=== PATIENT | male | born 1940 | race Caucasian/White ===

== ENCOUNTER 2020-04-30 19:18 | Observation (INO) | payer MEDICAID, MEDICARE ==
[2020-04-30] MEDS ORDERED: fentaNYL 100 MCG/2 ML SDV IVPUSH ONE (20:10)
[2020-04-30] MEDS ORDERED: Prochlorperazine 10 MG/2 ML SDV IVPUSH ONE (20:10)
--- NOTE | 2020-04-30 20:12 | EDM.PDOC ---
ED HPI GENERAL MEDICAL PROBLEM - General Chief Complaint: General Stated Complaint: VOMITTING Time Seen by Provider: 04/30/20 20:04 Source of Information: Reports: Patient, RN Notes Reviewed History Limitations: Reports: No Limitations - History of Present Illness INITIAL COMMENTS - FREE TEXT/NARRATIVE: 79-year-old gentleman presents emergency department today via EMS services, he is a resident of a half-way [facility] over the last couple days he has had increasing abdominal pain today significant nausea and vomiting pain is predominantly epigastric in region. No fevers no shortness of breath no chest pain no history of abdominal surgeries - Related Data Allergies Allergy/AdvReac Type Severity Reaction Status Date / Time No Known Allergies Allergy Verified 04/30/20 19:20 Home Meds: Home Meds DULoxetine HCl [Duloxetine HCl] 20 mg PO DAILY 04/30/20 [History] Fluticasone Propionate [Flonase] 2 spray NS DAILY 04/30/20 [History] Loratadine 10 mg PO BEDTIME 04/30/20 [History] OLANZapine [Olanzapine] 2.5 mg PO BEDTIME 04/30/20 [History] [place]-3 Fatty Acids/Fish Oil [Fish Oil 1,000 mg Capsule] 1 cap PO DAILY 04/30/20 [History] Simvastatin [Zocor] 20 mg PO DAILY 04/30/20 [History] Tamsulosin HCl [Flomax] 1 cap PO BEDTIME 04/30/20 [History] Tiotropium [place] [Spiriva Respimat] 2 puff IH DAILY 04/30/20 [History] levETIRAcetam [Keppra] 250 mg PO BID 04/30/20 [History] lisinopriL [Lisinopril] 10 mg PO DAILY 04/30/20 [History] Past Medical History Cardiovascular History: Reports: Hypertension, Other (See Below) Other Cardiovascular History: heart disease Gastrointestinal History: Reports: GERD Psychiatric History: Reports: Dementia Endocrine/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, Type II - Infectious Disease History Infectious Disease History: Reports: Chicken Pox, Measles, Mumps Social & Family History - Tobacco Use Tobacco Use Status *Q: Never Tobacco User - Caffeine Use Caffeine Use: Reports: Coffee - Recreational Drug Use Recreational Drug Use: No ED ROS GENERAL - Review of Systems Review Of Systems: See Below Constitutional: Denies: Fever, Chills HEENT: Reports: No Symptoms Respiratory: Reports: No Symptoms Cardiovascular: Reports: No Symptoms GI/Abdominal: Reports: Abdominal Pain, Nausea, Vomiting : Reports: No Symptoms Musculoskeletal: Reports: No Symptoms ED EXAM, GENERAL - Physical Exam Exam: See Below Exam Limited By: No Limitations General Appearance: Alert, WD/WN, No Apparent Distress Respiratory/Chest: No Respiratory Distress, Lungs Clear, Normal Breath Sounds, No Accessory Muscle Use, Chest Non-Tender Cardiovascular: Regular Rate, Rhythm, No Murmur GI/Abdominal: Normal Bowel Sounds, Soft, Distended, Tender (Epigastric region) Course - Vital Signs Last Recorded V/S: Last Vital Signs Temp 96.5 F L 04/30/20 19:20 Pulse 125 H 04/30/20 22:01 Resp 16 04/30/20 21:12 BP 176/80 H 04/30/20 22:01 Pulse Ox 93 L 04/30/20 21:12 - Orders/Labs/Meds Orders: Active Orders 24 hr Category Date Time Status Peripheral IV Care [RC] . DIRECTED Care 04/30/20 22:17 Active UA W/MICROSCOPIC [URIN] Urgent Lab 04/30/20 20:08 Ordered Lactated Ringers [Ringers, Lactated] 1,000 ml Med 04/30/20 20:15 Active IV ASDIRECTED Sodium Chloride 0.9% [Saline Flush] Med 04/30/20 22:17 Active 10 ml FLUSH ASDIRECTED PRN Peripheral IV Insertion Pediatric [OM.PC] Routine Oth 04/30/20 22:17 Ordered Medication Orders Lactated Ringer's (Ringers, Lactated) 1,000 mls @ 999 mls/hr IV ASDIRECTED GABY Last Admin: 04/30/20 20:21 Dose: 500 mls/hr Documented by: ANNETTE Sodium Chloride (Saline Flush) 10 ml FLUSH ASDIRECTED PRN PRN Reason: Keep Vein Open Last Admin: 04/30/20 22:30 Dose: 10 ml Documented by: ANNETTE Labs: Laboratory Tests 04/30/20 04/30/20 04/30/20 Range/Units 21:11 21:11 21:11 WBC 14.1 H (4.5-11.0) K/uL RBC 4.80 (4.30-5.90) M/uL Hgb 14.8 (12.0-15.0) g/dL Hct 44.0 (40.0-54.0) % MCV 92 (80-98) fL MCH 31 (27-31) pg MCHC 34 (32-36) % Plt Count 315 (150-400) K/uL Neut % (Auto) 88 H (36-66) % Lymph % (Auto) 8 L (24-44) % [place] % (Auto) 3 (2-6) % Eos % (Auto) 0 L (2-4) % Baso % (Auto) 0 (0-1) % Sodium 141 (140-148) mmol/L Potassium 4.3 (3.6-5.2) mmol/L Chloride 104 (100-108) mmol/L Carbon Dioxide 25 (21-32) mmol/L Anion Gap 12.0 (5.0-14.0) mmol/L BUN 29 H (7-18) mg/dL Creatinine 1.7 H (0.8-1.3) mg/dL Est Cr Clr Drug Dosing TNP Estimated GFR (MDRD) 39 L (>60) Glucose 180 H (74-106) mg/dL Lactic Acid 1.9 (0.4-2.0) mmol/L Calcium 9.1 (8.5-10.1) mg/dL Total Bilirubin 0.5 (0.2-1.0) mg/dL AST 11 L (15-37) U/L ALT 18 (12-78) U/L Alkaline Phosphatase 98 (46-116) U/L Troponin I < 0.017 (0.000-0.056) ng/mL Total Protein 7.7 (6.4-8.2) g/dL Albumin 3.9 (3.4-5.0) g/dL Globulin 3.8 H (2.3-3.5) g/dL Albumin/Globulin Ratio 1.0 L (1.2-2.2) Lipase 59 L (73-393) U/L Gastric Occult Blood (NEGATIVE) 04/30/20 Range/Units 22:04 WBC (4.5-11.0) K/uL RBC (4.30-5.90) M/uL Hgb (12.0-15.0) g/dL Hct (40.0-54.0) % MCV (80-98) fL MCH (27-31) pg MCHC (32-36) % Plt Count (150-400) K/uL Neut % (Auto) (36-66) % Lymph % (Auto) (24-44) % [place] % (Auto) (2-6) % Eos % (Auto) (2-4) % Baso % (Auto) (0-1) % Sodium (140-148) mmol/L Potassium (3.6-5.2) mmol/L Chloride (100-108) mmol/L Carbon Dioxide (21-32) mmol/L Anion Gap (5.0-14.0) mmol/L BUN (7-18) mg/dL Creatinine (0.8-1.3) mg/dL Est Cr Clr Drug Dosing Estimated GFR (MDRD) (>60) Glucose (74-106) mg/dL Lactic Acid (0.4-2.0) mmol/L Calcium (8.5-10.1) mg/dL Total Bilirubin (0.2-1.0) mg/dL AST (15-37) U/L ALT (12-78) U/L Alkaline Phosphatase (46-116) U/L Troponin I (0.000-0.056) ng/mL Total Protein (6.4-8.2) g/dL Albumin (3.4-5.0) g/dL Globulin (2.3-3.5) g/dL Albumin/Globulin Ratio (1.2-2.2) Lipase (73-393) U/L Gastric Occult Blood Positive H (NEGATIVE) Meds: Medications Generic Name Dose Route Start Last Admin Trade Name Freq PRN Reason Stop Dose Admin Lactated Ringer's 1,000 mls @ 999 mls/hr 04/30/20 20:15 04/30/20 20:21 Ringers, Lactated IV 500 mls/hr ASDIRECTED GABY Administration Sodium Chloride 10 ml 04/30/20 22:17 04/30/20 22:30 Saline Flush FLUSH 10 ml ASDIRECTED PRN Administration Keep Vein Open Discontinued Medications Generic Name Dose Route Start Last Admin Trade Name Freq PRN Reason Stop Dose Admin Fentanyl 50 mcg 04/30/20 20:10 04/30/20 20:22 Sublimaze IVPUSH 04/30/20 20:11 50 mcg ONETIME ONE Administration Lorazepam 1 mg 10/30/20 21:52 04/30/20 22:06 Ativan IVPUSH 04/30/20 21:53 1 mg ONETIME ONE Administration Octreotide Acetate 50 mcg 04/30/20 22:18 04/30/20 22:29 Sandostatin IVPUSH 04/30/20 22:19 50 mcg ONETIME ONE Administration Pantoprazole Sodium 40 mg 04/30/20 22:17 04/30/20 22:29 Protonix Iv IVPUSH 04/30/20 22:18 40 mg ONETIME ONE Administration Prochlorperazine Edisylate 5 mg 04/30/20 20:10 04/30/20 20:22 Compazine IVPUSH 04/30/20 20:11 5 mg ONETIME ONE Administration Departure - Departure Time of Disposition: 23:15 Disposition: Admitted As Inpatient 68 Condition: Fair Clinical Impression: Gastroenteritis - Discharge Information Referrals: PCP,None [Primary Care Provider] - Forms: ED Department Discharge Sepsis Event Note (ED) - Evaluation Sepsis Screening Result: No Definite Risk - Focused Exam Vital Signs: Vital Signs Temp Pulse Resp BP Pulse Ox 04/30/20 22:01 125 H 176/80 H 04/30/20 21:12 120 H 16 172/85 H 93 L 04/30/20 19:20 96.5 F L 108 H 18 186/96 H 95 - My Orders Last 24 Hours: My Active Orders 04/30/20 20:08 UA W/MICROSCOPIC [URIN] Urgent 04/30/20 20:15 Lactated Ringers [Ringers, Lactated] 1,000 ml IV ASDIRECTED 04/30/20 22:17 Peripheral IV Care [RC] . DIRECTED Sodium Chloride 0.9% [Saline Flush] 10 ml FLUSH ASDIRECTED PRN Peripheral IV Insertion Pediatric [OM.PC] Routine - Assessment/Plan Last 24 Hours: My Active Orders 04/30/20 20:08 UA W/MICROSCOPIC [URIN] Urgent 04/30/20 20:15 Lactated Ringers [Ringers, Lactated] 1,000 ml IV ASDIRECTED 04/30/20 22:17 Peripheral IV Care [RC] . DIRECTED Sodium Chloride 0.9% [Saline Flush] 10 ml FLUSH ASDIRECTED PRN Peripheral IV Insertion Pediatric [OM.PC] Routine Plan: Assessment Acuity = acute Site and laterality = gastroenteritis Etiology = probably viral Manifestations = nausea vomiting Location of injury = Home Lab values = WBC elevated 14.1 consistent leukocytosis creatinine elevated 1.7 consistent with chronic renal failure stage G3 B lactic acid normal 1.8 troponin is negative positive occult blood in the gastric secretions Covid test per report from [facility] is negative Plan Call discussed case hospitalist on-call at [phone] he currently agreed to come and evaluate patient emergency department for admission This note was dictated using [employer] voice recognition software please call with any questions on syntax or grammar.
[2020-04-30] MEDS ORDERED: Lactated Ringers 1,000 ML IV SCH (20:15)
[2020-04-30] MEDS ORDERED: LORazepam 2 MG/ML SDV IVPUSH ONE (21:52)
[2020-04-30] MEDS ORDERED: Pantoprazole 40 MG Vial IVPUSH ONE (22:17)
[2020-04-30] MEDS ORDERED: Sodium Chloride 0.9% 10 ML Syringe FLUSH PRN (22:17)
[2020-04-30] MEDS ORDERED: Octreotide 100 MCG/ML SDV IVPUSH ONE (22:18)
--- NOTE | 2020-04-30 22:40 | CRLCT ---
INDICATION: epigastric pain and distention CT ABDOMEN AND PELVIS WITHOUT CONTRAST TECHNIQUE: Multidetector CT imaging was performed through the abdomen and pelvis without intravenous contrast administration. Coronal and sagittal reconstructions were generated. COMPARISON: None. FINDINGS: Lower chest: Mild basilar lung atelectasis, greatest on the right. Liver: Within normal limits. Gallbladder and bile ducts: No gallbladder wall thickening or calcified gallstones. No biliary dilation identified. Pancreas: Unremarkable. Spleen: Normal. Adrenals: No nodules or masses. Kidneys, ureters, and urinary bladder: Bilateral renal cortical hypodensities likely representing cysts. Tiny nonobstructing stone in the lower pole of the left kidney. No ureteral stones or hydronephrosis. No bladder mass or definite wall thickening. Gastrointestinal tract: Small to moderate sized hiatal hernia. Nonspecific mild prominence of gas within the stomach and in portions of the small bowel and colon, without caliber transition, possibly due to gastroenteritis. No bowel wall thickening identified. Appendix is not seen. Multiple sigmoid colon diverticula are present, without evidence of diverticulitis. Vascular structures: Mild to moderate aortoiliac atherosclerotic calcifications. Peritoneum: No free air, abscess, or significant free fluid. Lymph nodes: No pathologically enlarged nodes identified. Reproductive organs: Mild prostatomegaly. Bones: Spinal degenerative changes. IMPRESSION: 1. Nonspecific mild prominence of gas within the stomach and bowel, possibly reflecting gastroenteritis. 2. Nonacute additional findings as detailed above. LILLIAM MIRAMONTES MD [employer] Dictated by Gregor Miramontes MD @ 04/30/2020 10:37:51 PM Dictated by: Gregor Miramontes MD @ 04/30/2020 22:38:04 (Electronically Signed)
[2020-04-30] MEDS ORDERED: Ondansetron 4 MG/2 ML SDV IV PRN (23:28)
--- NOTE | 2020-04-30 23:50 | EDM.PDOC ---
ED HPI GENERAL MEDICAL PROBLEM - General Chief Complaint: General Stated Complaint: VOMITTING Time Seen by Provider: 04/30/20 20:04 Source of Information: Reports: Patient, RN Notes Reviewed History Limitations: Reports: No Limitations - History of Present Illness INITIAL COMMENTS - FREE TEXT/NARRATIVE: This patient who has a history of Diabetes mellitus, coronary artery disease and dementia presented to the emergency department and was evaluated by Dr Officer with the below history. He has a history of an appendectomy when he was younger otherwise no other abdominal surgery or history of cancer. He notes nausea and vomiting as well as abdominal pain and back discomfort. He is a vague historian given his history of dementia. He is not had any diarrhea and his last bowel movement was yesterday. He reports passing gas today. Patient does not have a fever. 79-year-old gentleman presents emergency department today via EMS services, he is a resident of a senior living [facility] over the last couple days he has had increasing abdominal pain today significant nausea and vomiting pain is predominantly epigastric in region. No fevers no shortness of breath no chest pain no history of abdominal surgeries. His work-up included a CT scan of the abdomen pelvis without contrast. There was no evidence of bowel obstruction. He had a few nonobstructing stones in the left kidney but there was no signs of hydronephrosis or hydroureter. He has a small to moderate size hiatal hernia. He has sigmoid colon diverticula gnosis without evidence of diverticulitis the impression was nonspecific mild prominence of gas within the stomach and bowel reflecting gastroenteritis. Patient had an elevated white blood count. His creatinine was 1.7. BUN was slightly elevated at 29 but his electrolytes were normal. He had normal troponin. He had a Covid test done earlier today and the results are pending. He has had an ECG that is pending. The patient is being admitted for gastroenteritis. He was given IV fluids while in the ED as well as pain medication and an antiemetic. - Related Data Allergies Allergy/AdvReac Type Severity Reaction Status Date / Time No Known Allergies Allergy Verified 04/30/20 19:20 Home Meds: Home Meds DULoxetine HCl [Duloxetine HCl] 20 mg PO DAILY 04/30/20 [History] Fluticasone Propionate [Flonase] 2 spray NS DAILY 04/30/20 [History] Loratadine 10 mg PO BEDTIME 04/30/20 [History] OLANZapine [Olanzapine] 2.5 mg PO BEDTIME 04/30/20 [History] [place]-3 Fatty Acids/Fish Oil [Fish Oil 1,000 mg Capsule] 1 cap PO DAILY 04/30/20 [History] Simvastatin [Zocor] 20 mg PO DAILY 04/30/20 [History] Tamsulosin HCl [Flomax] 1 cap PO BEDTIME 04/30/20 [History] Tiotropium [place] [Spiriva Respimat] 2 puff IH DAILY 04/30/20 [History] levETIRAcetam [Keppra] 250 mg PO BID 04/30/20 [History] lisinopriL [Lisinopril] 10 mg PO DAILY 04/30/20 [History] Past Medical History Cardiovascular History: Reports: Hypertension, Other (See Below) Other Cardiovascular History: heart disease Gastrointestinal History: Reports: GERD Psychiatric History: Reports: Dementia Endocrine/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, Type II - Infectious Disease History Infectious Disease History: Reports: Chicken Pox, Measles, Mumps Social & Family History - Tobacco Use Tobacco Use Status *Q: Never Tobacco User - Caffeine Use Caffeine Use: Reports: Coffee - Recreational Drug Use Recreational Drug Use: No ED ROS GENERAL - Review of Systems Review Of Systems: Unable To Obtain Reason Not Obtained: Dementia ED EXAM, GENERAL - Physical Exam Exam: See Below Free Text/Narrative:: 79-year-old gentleman presents emergency department today via EMS services, he is a resident of a senior living [facility] over the last couple days he has had increasing abdominal pain today significant nausea and vomiting pain is predominantly epigastric in region. No fevers no shortness of breath no chest pain no history of abdominal surgeries Exam Limited By: No Limitations General Appearance: Alert, WD/WN, No Apparent Distress, Mild Distress Ears: Normal External Exam, Normal Canal, Normal TMs Nose: Normal Inspection Throat/Mouth: Normal Inspection, Other (Mucous membranes are moist.) Head: Atraumatic Neck: Normal Inspection Respiratory/Chest: No Respiratory Distress, Lungs Clear, Normal Breath Sounds, No Accessory Muscle Use, Chest Non-Tender Cardiovascular: No Murmur, Tachycardia GI/Abdominal: Soft, Distended, Tender (Epigastric region), Other (His abdomen is generally distended. Bowel sounds are absent in all quadrants.). No: Normal Bowel Sounds Extremities: Normal Inspection Neurological: Slow to Respond, Memory Loss Recent Events Course - Vital Signs Text/Narrative:: This patient has gastroenteritis. His abdomen is distended he is tachycardic. He appears to have a small bowel obstruction however his CT scan did not show any evidence of obstruction. He has significant amount of gas in his abdomen. His vomiting is well controlled with Zofran. Was given fluids in the ED. He is being admitted for fluids as well as antiemetics. Hopefully he will be much better in the morning and can be discharged tomorrow. Is being admitted for observation. His CODE STATUS is DNR/DNI. Dr. Lane and was consulted by . Officer at admission. Patient received a dose of octreotide in the ED because there was possibility of GI bleed. CBC is normal. Other than tachycardia he is hemodynamically stable. ECG showed a sinus tachycardia. There is no signs of ischemia. Last Recorded V/S: Last Vital Signs Temp 35.8 C L 04/30/20 19:20 Pulse 125 H 04/30/20 22:01 Resp 16 04/30/20 21:12 BP 176/80 H 04/30/20 22:01 Pulse Ox 93 L 04/30/20 21:12 - Orders/Labs/Meds Orders: Active Orders 24 hr Category Date Time Status Patient Status [ADT] Routine ADT 04/30/20 23:28 Active EKG Documentation Completion [RC] ASDIRECTED Care 04/30/20 23:33 Active Intake and Output [RC] QSHIFT Care 04/30/20 23:31 Active Oxygen Therapy [RC] PRN Care 04/30/20 23:28 Active Peripheral IV Care [RC] . DIRECTED Care 04/30/20 22:17 Active Up With Assistance [RC] ASDIRECTED Care 04/30/20 23:28 Active VTE/DVT Education [RC] Per Unit Routine Care 04/30/20 23:28 Active Vital Signs [RC] Q4H Care 04/30/20 23:28 Active Nothing per Oral Now Diet [DIET] Diet 04/30/20 Breakfast Active BASIC METABOLIC PANEL,BMP [CHEM] AM Lab 05/01/20 05:11 Ordered CBC WITH AUTO DIFF [HEME] AM Lab 05/01/20 05:11 Ordered UA W/MICROSCOPIC [URIN] Urgent Lab 04/30/20 20:08 Ordered DULoxetine [Cymbalta] Med 05/01/20 09:00 Ordered 20 mg PO DAILY Fluticasone Propionate [Flonase] Med 05/01/20 09:00 Ordered DOSE gm GERMAN DAILY Lactated Ringers [Ringers, Lactated] 1,000 ml Med 04/30/20 20:15 Active IV ASDIRECTED Loratadine [Claritin] Med 05/01/20 21:00 Ordered 10 mg PO BEDTIME OLANZapine [Olanzapine] Med 05/01/20 21:00 Ordered 2.5 mg PO BEDTIME [place]-3 Fatty Acids/Fish Oil [Fish Oil 1,000 mg Capsule Med 05/01/20 09:00 Ordered ] 1 cap PO DAILY Ondansetron [Zofran] Med 04/30/20 23:28 Active 4 mg IV Q6H PRN Simvastatin [Zocor] Med 05/01/20 09:00 Ordered 20 mg PO DAILY Sodium Chloride 0.9% [Normal Saline] 1,000 ml Med 04/30/20 23:30 Active IV ASDIRECTED Sodium Chloride 0.9% [Saline Flush] Med 04/30/20 22:17 Active 10 ml FLUSH ASDIRECTED PRN Tamsulosin [Flomax] Med 05/01/20 21:00 Ordered DOSE mg PO BEDTIME Tiotropium [place] [Spiriva Respimat] Med 05/01/20 09:00 Ordered 2 puff IH DAILY levETIRAcetam [Keppra] Med 05/01/20 09:00 Ordered 250 mg PO BID lisinopriL [Prinivil] Med 05/01/20 09:00 Ordered 10 mg PO DAILY Peripheral IV Insertion Pediatric [OM.PC] Routine Oth 04/30/20 22:17 Ordered Resuscitation Status Routine Resus Stat 04/30/20 23:28 Ordered EKG 12 Lead [EK] Stat Ther 04/30/20 23:28 Ordered Medication Orders Duloxetine HCl (Cymbalta) 20 mg PO DAILY GABY Fluticasone Propionate (Flonase) gm GERMAN DAILY GABY Lactated Ringer's (Ringers, Lactated) 1,000 mls @ 999 mls/hr IV ASDIRECTED GABY Last Admin: 04/30/20 20:21 Dose: 500 mls/hr Documented by: ANNETTE Sodium Chloride (Normal Saline) 1,000 mls @ 125 mls/hr IV ASDIRECTED GABY Levetiracetam (Keppra) 250 mg PO BID GABY Lisinopril (Prinivil) 10 mg PO DAILY GABY Loratadine (Claritin) 10 mg PO BEDTIME GABY Non-Formulary Medication (Olanzapine [Olanzapine]) 2.5 mg PO BEDTIME GABY Non-Formulary Medication ([place]-3 Fatty Acids/Fish Oil [Fish Oil 1,000 Mg Capsule]) 1 cap PO DAILY GABY Non-Formulary Medication (Tiotropium [place] [Spiriva Respimat]) 2 puff IH DAILY GABY Ondansetron HCl (Zofran) 4 mg IV Q6H PRN PRN Reason: Nausea/Vomiting Simvastatin (Zocor) 20 mg PO DAILY GABY Sodium Chloride (Saline Flush) 10 ml FLUSH ASDIRECTED PRN PRN Reason: Keep Vein Open Last Admin: 04/30/20 22:30 Dose: 10 ml Documented by: ANNETTE Tamsulosin HCl (Flomax) mg PO BEDTIME GABY Labs: Laboratory Tests 04/30/20 04/30/20 04/30/20 Range/Units 21:11 21:11 21:11 WBC 14.1 H (4.5-11.0) K/uL RBC 4.80 (4.30-5.90) M/uL Hgb 14.8 (12.0-15.0) g/dL Hct 44.0 (40.0-54.0) % MCV 92 (80-98) fL MCH 31 (27-31) pg MCHC 34 (32-36) % Plt Count 315 (150-400) K/uL Neut % (Auto) 88 H (36-66) % Lymph % (Auto) 8 L (24-44) % [place] % (Auto) 3 (2-6) % Eos % (Auto) 0 L (2-4) % Baso % (Auto) 0 (0-1) % Sodium 141 (140-148) mmol/L Potassium 4.3 (3.6-5.2) mmol/L Chloride 104 (100-108) mmol/L Carbon Dioxide 25 (21-32) mmol/L Anion Gap 12.0 (5.0-14.0) mmol/L BUN 29 H (7-18) mg/dL Creatinine 1.7 H (0.8-1.3) mg/dL Est Cr Clr Drug Dosing TNP Estimated GFR (MDRD) 39 L (>60) Glucose 180 H (74-106) mg/dL Lactic Acid 1.9 (0.4-2.0) mmol/L Calcium 9.1 (8.5-10.1) mg/dL Total Bilirubin 0.5 (0.2-1.0) mg/dL AST 11 L (15-37) U/L ALT 18 (12-78) U/L Alkaline Phosphatase 98 (46-116) U/L Troponin I < 0.017 (0.000-0.056) ng/mL Total Protein 7.7 (6.4-8.2) g/dL Albumin 3.9 (3.4-5.0) g/dL Globulin 3.8 H (2.3-3.5) g/dL Albumin/Globulin Ratio 1.0 L (1.2-2.2) Lipase 59 L (73-393) U/L Gastric Occult Blood (NEGATIVE) 04/30/20 Range/Units 22:04 WBC (4.5-11.0) K/uL RBC (4.30-5.90) M/uL Hgb (12.0-15.0) g/dL Hct (40.0-54.0) % MCV (80-98) fL MCH (27-31) pg MCHC (32-36) % Plt Count (150-400) K/uL Neut % (Auto) (36-66) % Lymph % (Auto) (24-44) % [place] % (Auto) (2-6) % Eos % (Auto) (2-4) % Baso % (Auto) (0-1) % Sodium (140-148) mmol/L Potassium (3.6-5.2) mmol/L Chloride (100-108) mmol/L Carbon Dioxide (21-32) mmol/L Anion Gap (5.0-14.0) mmol/L BUN (7-18) mg/dL Creatinine (0.8-1.3) mg/dL Est Cr Clr Drug Dosing Estimated GFR (MDRD) (>60) Glucose (74-106) mg/dL Lactic Acid (0.4-2.0) mmol/L Calcium (8.5-10.1) mg/dL Total Bilirubin (0.2-1.0) mg/dL AST (15-37) U/L ALT (12-78) U/L Alkaline Phosphatase (46-116) U/L Troponin I (0.000-0.056) ng/mL Total Protein (6.4-8.2) g/dL Albumin (3.4-5.0) g/dL Globulin (2.3-3.5) g/dL Albumin/Globulin Ratio (1.2-2.2) Lipase (73-393) U/L Gastric Occult Blood Positive H (NEGATIVE) Meds: Medications Generic Name Dose Route Start Last Admin Trade Name Freq PRN Reason Stop Dose Admin Duloxetine HCl 20 mg 05/01/20 09:00 Cymbalta PO DAILY GABY Fluticasone Propionate gm 05/01/20 09:00 Flonase GERMAN DAILY GABY Lactated Ringer's 1,000 mls @ 999 mls/hr 04/30/20 20:15 04/30/20 20:21 Ringers, Lactated IV 500 mls/hr ASDIRECTED GABY Administration Sodium Chloride 1,000 mls @ 125 mls/hr 04/30/20 23:30 Normal Saline IV ASDIRECTED GABY Levetiracetam 250 mg 05/01/20 09:00 Keppra PO BID GABY Lisinopril 10 mg 05/01/20 09:00 Prinivil PO DAILY GABY Loratadine 10 mg 05/01/20 21:00 Claritin PO BEDTIME GABY Non-Formulary Medication 2.5 mg 05/01/20 21:00 Olanzapine [Olanzapine] PO BEDTIME GABY Non-Formulary Medication 1 cap 05/01/20 09:00 [place]-3 Fatty Acids/Fish Oil [Fish Oil 1,000 Mg Capsule] PO DAILY GABY Non-Formulary Medication 2 puff 05/01/20 09:00 Tiotropium [place] [Spiriva Respimat] IH DAILY GABY Ondansetron HCl 4 mg 04/30/20 23:28 Zofran IV Q6H PRN Nausea/Vomiting Simvastatin 20 mg 05/01/20 09:00 Zocor PO DAILY GABY Sodium Chloride 10 ml 04/30/20 22:17 04/30/20 22:30 Saline Flush FLUSH 10 ml ASDIRECTED PRN Administration Keep Vein Open Tamsulosin HCl mg 05/01/20 21:00 Flomax PO BEDTIME GABY Discontinued Medications Generic Name Dose Route Start Last Admin Trade Name Freq PRN Reason Stop Dose Admin Fentanyl 50 mcg 04/30/20 20:10 04/30/20 20:22 Sublimaze IVPUSH 04/30/20 20:11 50 mcg ONETIME ONE Administration Lorazepam 1 mg 04/30/20 21:52 04/30/20 22:06 Ativan IVPUSH 04/30/20 21:53 1 mg ONETIME ONE Administration Octreotide Acetate 50 mcg 04/30/20 22:18 04/30/20 22:29 Sandostatin IVPUSH 04/30/20 22:19 50 mcg ONETIME ONE Administration Pantoprazole Sodium 40 mg 04/30/20 22:17 04/30/20 22:29 Protonix Iv IVPUSH 04/30/20 22:18 40 mg ONETIME ONE Administration Prochlorperazine Edisylate 5 mg 04/30/20 20:10 04/30/20 20:22 Compazine IVPUSH 04/30/20 20:11 5 mg ONETIME ONE Administration Departure - Departure Time of Disposition: 23:55 Disposition: Refer to Observation Condition: Fair Clinical Impression: Gastroenteritis - Discharge Information Referrals: PCP,None [Primary Care Provider] - Forms: ED Department Discharge Sepsis Event Note (ED) - Evaluation Sepsis Screening Result: No Definite Risk - Focused Exam Vital Signs: Vital Signs Temp Pulse Resp BP Pulse Ox 04/30/20 22:01 125 H 176/80 H 04/30/20 21:12 120 H 16 172/85 H 93 L 04/30/20 19:20 35.8 C L 108 H 18 186/96 H 95 - My Orders Last 24 Hours: My Active Orders 04/30/20 Breakfast Nothing per Oral Now Diet [DIET] 04/30/20 23:28 Patient Status [ADT] Routine Oxygen Therapy [RC] PRN Up With Assistance [RC] ASDIRECTED VTE/DVT Education [RC] Per Unit Routine Vital Signs [RC] Q4H Ondansetron [Zofran] 4 mg IV Q6H PRN Resuscitation Status Routine EKG 12 Lead [EK] Stat 04/30/20 23:30 Sodium Chloride 0.9% [Normal Saline] 1,000 ml IV ASDIRECTED 10/30/20 23:31 Intake and Output [RC] QSHIFT 04/30/20 23:33 EKG Documentation Completion [RC] ASDIRECTED 05/01/20 05:11 BASIC METABOLIC PANEL,BMP [CHEM] AM CBC WITH AUTO DIFF [HEME] AM 05/01/20 09:00 DULoxetine [Cymbalta] 20 mg PO DAILY Fluticasone Propionate [Flonase] DOSE gm GERMAN DAILY [place]-3 Fatty Acids/Fish Oil [Fish Oil 1,000 mg Capsule] 1 cap PO DAILY Simvastatin [Zocor] 20 mg PO DAILY Tiotropium [place] [Spiriva Respimat] 2 puff IH DAILY levETIRAcetam [Keppra] 250 mg PO BID lisinopriL [Prinivil] 10 mg PO DAILY 05/01/20 21:00 Loratadine [Claritin] 10 mg PO BEDTIME OLANZapine [Olanzapine] 2.5 mg PO BEDTIME Tamsulosin [Flomax] DOSE mg PO BEDTIME - Assessment/Plan Last 24 Hours: My Active Orders 04/30/20 Breakfast Nothing per Oral Now Diet [DIET] 04/30/20 23:28 Patient Status [ADT] Routine Oxygen Therapy [RC] PRN Up With Assistance [RC] ASDIRECTED VTE/DVT Education [RC] Per Unit Routine Vital Signs [RC] Q4H Ondansetron [Zofran] 4 mg IV Q6H PRN Resuscitation Status Routine EKG 12 Lead [EK] Stat 04/30/20 23:30 Sodium Chloride 0.9% [Normal Saline] 1,000 ml IV ASDIRECTED 04/30/20 23:31 Intake and Output [RC] QSHIFT 04/30/20 23:33 EKG Documentation Completion [RC] ASDIRECTED 05/01/20 05:11 BASIC METABOLIC PANEL,BMP [CHEM] AM CBC WITH AUTO DIFF [HEME] AM 05/01/20 09:00 DULoxetine [Cymbalta] 20 mg PO DAILY Fluticasone Propionate [Flonase] DOSE gm GERMAN DAILY [place]-3 Fatty Acids/Fish Oil [Fish Oil 1,000 mg Capsule] 1 cap PO DAILY Simvastatin [Zocor] 20 mg PO DAILY Tiotropium [place] [Spiriva Respimat] 2 puff IH DAILY levETIRAcetam [Keppra] 250 mg PO BID lisinopriL [Prinivil] 10 mg PO DAILY 05/01/20 21:00 Loratadine [Claritin] 10 mg PO BEDTIME OLANZapine [Olanzapine] 2.5 mg PO BEDTIME Tamsulosin [Flomax] DOSE mg PO BEDTIME
[2020-05-01] MEDS ORDERED: Ondansetron 4 MG/2 ML SDV IVPUSH PRN (00:10)
[2020-05-01] MEDS ORDERED: Dimethicone 20%/Zinc Oxide 25% 56 GM Spray Bottle TOP PRN (00:11)
[2020-05-01] MEDS ORDERED: fentaNYL 100 MCG/2 ML SDV IVPUSH PRN (00:11)
[2020-05-01] MEDS: Sodium Chloride 0.9% 1,000 ML IV SCH ×2 (00:40→08:35)
[2020-05-01] MEDS: DULoxetine 20 MG Cap PO SCH (08:59)
[2020-05-01] MEDS: Lisinopril 10 MG Tab PO SCH (08:59)
[2020-05-01] MEDS: Fish Oil/Omega-3 Fatty Acids 1 Gm Cap PO SCH (08:59)
[2020-05-01] MEDS: Fluticasone Propionate Nasal Spray 16 GM Bottle NAS SCH (09:00)
[2020-05-01] MEDS ORDERED: Simvastatin 20 MG Tab PO SCH ×2 (09:00→21:00)
[2020-05-01] MEDS: levETIRAcetam 250 MG Tab PO SCH ×2 (09:00→20:16)
[2020-05-01] MEDS ORDERED: Tiotropium Bromide 4 GM Inhalation Spray INH SCH (09:00)
[2020-05-01] MEDS: Tiotropium Bromide 4 GM Inhalation Spray INH SCH (11:28)
--- NOTE | 2020-05-01 15:01 | PCM.PN ---
- General Info Date of Service: 05/01/20 Subjective Update: Mr. Dawn is a 79-year-old gentleman who was admitted through the emergency department last night with epigastric abdominal pain, nausea and vomiting. The symptoms have been present over the past few days and he has become progressively more weak. He was given IV fluids for hydration through the night and also started on Protonix. He is feeling improved this morning with less pain and currently denies any symptoms of nausea. Emesis was found to be Hem occult positive, but not overtly bloody. Functional Status: Reports: Ambulating, Urinating - Review of Systems General: Reports: Weakness, Fatigue, Malaise. Denies: Fever, Chills Pulmonary: Reports: No Symptoms Cardiovascular: Reports: No Symptoms Gastrointestinal: Reports: Abdominal Pain, Decreased Appetite, Nausea, Vomiting. Denies: Constipation, Diarrhea, Difficulty Swallowing, Hematochezia, Melena Genitourinary: Reports: No Symptoms - Patient Data Vitals - Most Recent: Last Vital Signs Temp 97.5 F 05/01/20 14:57 Pulse 97 05/01/20 14:57 Resp 18 05/01/20 14:57 BP 156/75 H 05/01/20 14:57 Pulse Ox 95 05/01/20 14:57 Weight - Most Recent: 175 lb I&O - Last 24 Hours: Intake & Output 04/30/20 05/01/20 05/01/20 22:59 06:59 14:59 Intake Total 578 420 Output Total 300 Balance -300 578 420 Lab Results Last 24 Hours: Laboratory Results - last 24 hr 04/30/20 04/30/20 04/30/20 Range/Units 21:11 21:11 21:11 WBC 14.1 H (4.5-11.0) K/uL RBC 4.80 (4.30-5.90) M/uL Hgb 14.8 (12.0-15.0) g/dL Hct 44.0 (40.0-54.0) % MCV 92 (80-98) fL MCH 31 (27-31) pg MCHC 34 (32-36) % Plt Count 315 (150-400) K/uL Neut % (Auto) 88 H (36-66) % Lymph % (Auto) 8 L (24-44) % [place] % (Auto) 3 (2-6) % Eos % (Auto) 0 L (2-4) % Baso % (Auto) 0 (0-1) % Sodium 141 (140-148) mmol/L Potassium 4.3 (3.6-5.2) mmol/L Chloride 104 (100-108) mmol/L Carbon Dioxide 25 (21-32) mmol/L Anion Gap 12.0 (5.0-14.0) mmol/L BUN 29 H (7-18) mg/dL Creatinine 1.7 H (0.8-1.3) mg/dL Est Cr Clr Drug Dosing TNP Estimated GFR (MDRD) 39 L (>60) Glucose 180 H (74-106) mg/dL Lactic Acid 1.9 (0.4-2.0) mmol/L Calcium 9.1 (8.5-10.1) mg/dL Total Bilirubin 0.5 (0.2-1.0) mg/dL AST 11 L (15-37) U/L ALT 18 (12-78) U/L Alkaline Phosphatase 98 (46-116) U/L Troponin I < 0.017 (0.000-0.056) ng/mL Total Protein 7.7 (6.4-8.2) g/dL Albumin 3.9 (3.4-5.0) g/dL Globulin 3.8 H (2.3-3.5) g/dL Albumin/Globulin Ratio 1.0 L (1.2-2.2) Lipase 59 L (73-393) U/L Gastric Occult Blood (NEGATIVE) 04/30/20 05/01/20 05/01/20 Range/Units 22:04 04:30 04:30 WBC 11.6 H (4.5-11.0) K/uL RBC 4.28 L (4.30-5.90) M/uL Hgb 12.8 D (12.0-15.0) g/dL Hct 39.7 L (40.0-54.0) % MCV 93 (80-98) fL MCH 30 (27-31) pg MCHC 32 (32-36) % Plt Count 333 (150-400) K/uL Neut % (Auto) 76 H (36-66) % Lymph % (Auto) 13 L (24-44) % [place] % (Auto) 10 H (2-6) % Eos % (Auto) 0 L (2-4) % Baso % (Auto) 0 (0-1) % Sodium 142 (140-148) mmol/L Potassium 4.2 (3.6-5.2) mmol/L Chloride 107 (100-108) mmol/L Carbon Dioxide 23 (21-32) mmol/L Anion Gap 11.7 (5.0-14.0) mmol/L BUN 29 H (7-18) mg/dL Creatinine 1.6 H (0.8-1.3) mg/dL Est Cr Clr Drug Dosing 36.15 Estimated GFR (MDRD) 42 L (>60) Glucose 152 H (74-106) mg/dL Lactic Acid (0.4-2.0) mmol/L Calcium 8.3 L (8.5-10.1) mg/dL Total Bilirubin (0.2-1.0) mg/dL AST (15-37) U/L ALT (12-78) U/L Alkaline Phosphatase (46-116) U/L Troponin I (0.000-0.056) ng/mL Total Protein (6.4-8.2) g/dL Albumin (3.4-5.0) g/dL Globulin (2.3-3.5) g/dL Albumin/Globulin Ratio (1.2-2.2) Lipase (73-393) U/L Gastric Occult Blood Positive H (NEGATIVE) Med Orders - Current: Current Medications Dimethicone/Zinc Oxide (Rash Relief-Zinc Oxide [place]) 1 gm TOP ASDIRECTED PRN PRN Reason: Rash Last Admin: 05/01/20 04:46 Dose: 1 applic Documented by: Duloxetine HCl (Cymbalta) 20 mg PO DAILY [facility] Last Admin: 05/01/20 08:59 Dose: 20 mg Documented by: Fentanyl (Sublimaze) 50 mcg IVPUSH Q6H PRN PRN Reason: Pain (severe 7-10) Fish Oil (Fish Oil) 1 gm PO DAILY [facility] Last Admin: 05/01/20 08:59 Dose: 1 gm Documented by: Fluticasone Propionate (Flonase) 0 gm GERMAN DAILY [facility] Last Admin: 05/01/20 09:00 Dose: 2 spray Documented by: Levetiracetam (Keppra) 250 mg PO BID [facility] Last Admin: 05/01/20 09:00 Dose: 250 mg Documented by: Lisinopril (Prinivil) 10 mg PO DAILY [facility] Last Admin: 05/01/20 08:59 Dose: 10 mg Documented by: Loratadine (Claritin) 10 mg PO BEDTIME GABY Olanzapine (Zyprexa) 2.5 mg PO BEDTIME [facility] Ondansetron HCl (Zofran) 4 mg IV Q6H PRN PRN Reason: Nausea/Vomiting Pantoprazole Sodium (Protonix) 40 mg PO BIDAC GABY Simvastatin (Zocor) 20 mg PO BEDTIME [facility] Sodium Chloride (Saline Flush) 10 ml FLUSH ASDIRECTED PRN PRN Reason: Keep Vein Open Last Admin: 04/30/20 22:30 Dose: 10 ml Documented by: Tamsulosin HCl (Flomax) 0.4 mg PO BEDTIME [facility] Tiotropium [place] (Spiriva Respimat) 0 gm INH DAILY@0700 [facility] Last Admin: 05/01/20 11:28 Dose: 4 gm Documented by: Discontinued Medications Fentanyl (Sublimaze) 50 mcg IVPUSH ONETIME ONE Stop: 04/30/20 20:11 Last Admin: 04/30/20 20:22 Dose: 50 mcg Documented by: Lactated Ringer's (Ringers, Lactated) 1,000 mls @ 999 mls/hr IV ASDIRECTED [facility] Last Admin: 04/30/20 20:21 Dose: 500 mls/hr Documented by: Sodium Chloride (Normal Saline) 1,000 mls @ 125 mls/hr IV ASDIRECTED [facility] Last Admin: 05/01/20 08:35 Dose: 125 mls/hr Documented by: Lorazepam (Ativan) 1 mg IVPUSH ONETIME ONE Stop: 04/30/20 21:53 Last Admin: 04/30/20 22:06 Dose: 1 mg Documented by: Octreotide Acetate (Sandostatin) 50 mcg IVPUSH ONETIME ONE Stop: 04/30/20 22:19 Last Admin: 04/30/20 22:29 Dose: 50 mcg Documented by: Pantoprazole Sodium (Protonix Iv) 40 mg IVPUSH ONETIME ONE Stop: 04/30/20 22:18 Last Admin: 04/30/20 22:29 Dose: 40 mg Documented by: Prochlorperazine Edisylate (Compazine) 5 mg IVPUSH ONETIME ONE Stop: 04/30/20 20:11 Last Admin: 04/30/20 20:22 Dose: 5 mg Documented by: - Exam Quality Assessment: DVT Prophylaxis General: Alert, Cooperative, No Acute Distress Lungs: Clear to Auscultation, Normal Respiratory Effort Cardiovascular: Regular Rate, Regular Rhythm, No Murmurs GI/Abdominal Exam: Soft, Non-Tender, No Organomegaly, No Distention Extremities: Non-Tender, No Pedal Edema Sepsis Event Note - Evaluation Sepsis Screening Result: No Definite Risk - Focused Exam Vital Signs: Vital Signs Temp Temp Pulse Resp BP BP Pulse Ox 05/01/20 14:57 97.5 F 97 18 156/75 H 95 05/01/20 11:00 98 F 85 12 152/84 H 93 L 05/01/20 08:59 145/80 H 05/01/20 07:00 99 16 120/76 94 L - Problem List Review Problem List Initiated/Reviewed/Updated: Yes - My Orders Last 24 Hours: My Active Orders 05/01/20 Breakfast Advance Diet Instructions [DIET] 05/01/20 10:21 Convert IV to Saline Lock [OM.PC] Routine 05/01/20 16:30 Pantoprazole [ProTONIX] 40 mg PO BIDAC - Plan Plan:: ASSESSMENT AND PLAN GASTROENTERITIS-symptoms of abdominal pain with nausea and vomiting over the past few days. CT scan was felt to be consistent with gastroenteritis. Emesis was found to be positive for blood, with no tevin blood noted. Hemoglobin has dropped following hydration which would be expected. There has been no other evidence of active bleeding. Symptomatically improved today with current management. -Saline lock IV -Protonix 40 mg p.o. twice daily -Clear liquid diet; advance as tolerated -Ambulate with nursing staff CHRONIC KIDNEY DISEASE STAGE IIIb-renal function improved modestly with hydration -Closely monitor urine output and renal function MAINTENANCE ISSUES -DVT prophylaxis; Lovenox 40 mg subcu daily -GI prophylaxis; PPI as above -Freed catheter; not indicated -Nutrition; clear liquid diet, advance as tolerated -Nicotine dependence; not required CODE STATUS-DNR/DNI ADMISSION STATUS-patient will be admitted to inpatient status, expect at least a 2 night hospital stay for evaluation and management of problems as outlined above. At the time of this admission I do not reasonably expected evaluation and management of this problem will require more than a 96 hour hospital stay. DISPOSITION-anticipate discharge to home after the hospital stay. PRIMARY CARE PROVIDER-
[2020-05-01] MEDS: Pantoprazole 40 MG Tab.CR PO SCH (17:14)
[2020-05-01] MEDS: Enoxaparin 40 MG/0.4 ML Syringe SUBCUT SCH (17:18)
[2020-05-01] MEDS ORDERED: OLANZapine 5 MG Tab PO SCH (21:00)
[2020-05-01] MEDS ORDERED: Loratadine 10 MG Tab PO SCH (21:00)
[2020-05-01] MEDS ORDERED: Tamsulosin 0.4 MG Cap.ER PO SCH (21:00)
[2020-05-02] MEDS: Tiotropium Bromide 4 GM Inhalation Spray INH SCH (07:18)
[2020-05-02] MEDS: Pantoprazole 40 MG Tab.CR PO SCH ×2 (07:45→15:41)
[2020-05-02] MEDS: levETIRAcetam 250 MG Tab PO SCH (08:34)
[2020-05-02] MEDS: DULoxetine 20 MG Cap PO SCH (08:34)
[2020-05-02] MEDS: Lisinopril 10 MG Tab PO SCH (08:34)
[2020-05-02] MEDS: Fish Oil/Omega-3 Fatty Acids 1 Gm Cap PO SCH (08:34)
[2020-05-02] MEDS: Fluticasone Propionate Nasal Spray 16 GM Bottle NAS SCH (08:35)
--- NOTE | 2020-05-02 12:39 | PCM.DCSUM1 ---
Discharge Summary - Hospital Course Brief History: Mr. Dawn is a 79-year-old gentleman who was admitted through the emergency department to observation status for management of nausea, vomiting, dehydration, secondary to gastroenteritis. - Discharge Data Discharge Date: 05/02/20 Discharge Disposition: Home, Self-Care 01 Condition: Fair - Referral to Home Health Primary Care Physician: PCP None - Discharge Diagnosis/Problem(s) (1) Nausea & vomiting SNOMED Code(s): 35421717 ICD Code: R11.2 - NAUSEA WITH VOMITING, UNSPECIFIED Status: Acute Current Visit: Yes (2) Dehydration SNOMED Code(s): 45680769 ICD Code: E86.0 - DEHYDRATION Status: Acute Current Visit: Yes (3) Gastroenteritis SNOMED Code(s): 26592297 ICD Code: K52.9 - NONINFECTIVE GASTROENTERITIS AND COLITIS, UNSPECIFIED Status: Acute Current Visit: Yes - Patient Summary/Data Hospital Course: This patient who has a history of Diabetes mellitus, coronary artery disease and dementia presented to the emergency department and was evaluated by Dr Officer with the below history. He notes nausea and vomiting as well as abdominal pain and back discomfort. He is a vague historian given his history of dementia. He is not had any diarrhea and his last bowel movement was yesterday. He reports passing gas today. Patient does not have a fever. His work-up included a CT scan of the abdomen pelvis without contrast. There was no evidence of bowel obstruction. He had a few nonobstructing stones in the left kidney but there was no signs of hydronephrosis or hydroureter. He has a small to moderate size hiatal hernia. He has sigmoid colon diverticula gnosis without evidence of diverticulitis the impression was nonspecific mild prominence of gas within the stomach and bowel reflecting gastroenteritis. Patient had an elevated white blood count. His creatinine was 1.7. BUN was slightly elevated at 29 but his electrolytes were normal. He had normal troponin. He had a Covid test done ear lier today and the results are pending. The patient was being admitted for gastroenteritis. He was given IV fluids while in the ED as well as pain medication and an antiemetic. After admission IV fluids were continued for dehydration and he was started on IV Protonix. He was already feeling somewhat better by the following morning with improved energy and resolution of his abdominal pain as well as nausea and vomiting. He was placed on oral Protonix twice daily and this will be continued after discharge once daily. He was placed on a clear liquid diet and diet was advanced as tolerated by the time of discharge he was tolerating a regular diet. He was transferring and ambulating independently. Activity will be as tolerated and he will resume his usual diet follow-up appointment will be scheduled with his primary care provider within 1 week. - Patient Instructions Diet: Regular Diet as Tolerated Activity: As Tolerated Other/Special Instructions: Please schedule follow-up appointment with primary care provider within 1 week. - Discharge Plan *PRESCRIPTION DRUG MONITORING PROGRAM REVIEWED*: Not Applicable *COPY OF PRESCRIPTION DRUG MONITORING REPORT IN PATIENT NEAL: Not Applicable Prescriptions/Med Rec: Pantoprazole [ProTONIX] 40 mg PO DAILY #30 tab.cr Home Medications: Home Meds DULoxetine HCl [Duloxetine HCl] 20 mg PO DAILY 04/30/20 [History] Fluticasone Propionate [Flonase] 2 spray NS DAILY 04/30/20 [History] Loratadine 10 mg PO BEDTIME 04/30/20 [History] OLANZapine [Olanzapine] 2.5 mg PO BEDTIME 04/30/20 [History] [place]-3 Fatty Acids/Fish Oil [Fish Oil 1,000 mg Capsule] 1 cap PO DAILY 04/30/20 [History] Simvastatin [Zocor] 20 mg PO DAILY 04/30/20 [History] Tamsulosin HCl [Flomax] 1 cap PO BEDTIME 04/30/20 [History] Tiotropium [place] [Spiriva Respimat] 2 puff IH DAILY 04/30/20 [History] levETIRAcetam [Keppra] 250 mg PO BID 04/30/20 [History] lisinopriL [Lisinopril] 10 mg PO DAILY 04/30/20 [History] Pantoprazole [ProTONIX] 40 mg PO DAILY #30 tab.cr 05/02/20 [Rx] - Discharge Summary/Plan Comment DC Time >30 min.: No - Patient Data Vitals - Most Recent: Last Vital Signs Temp 98.9 F 05/02/20 11:48 Pulse 83 05/02/20 11:48 Resp 16 05/02/20 11:48 BP 132/74 05/02/20 11:48 Pulse Ox 97 05/02/20 11:48 Weight - Most Recent: 175 lb I&O - Last 24 hours: Intake & Output 05/01/20 05/02/20 05/02/20 23:59 06:59 14:59 Intake Total 240 Balance 240 Med Orders - Current: Current Medications Dimethicone/Zinc Oxide (Rash Relief-Zinc Oxide [place]) 1 gm TOP ASDIRECTED PRN PRN Reason: Rash Last Admin: 05/01/20 04:46 Dose: 1 applic Documented by: Duloxetine HCl (Cymbalta) 20 mg PO DAILY [facility] Last Admin: 05/02/20 08:34 Dose: 20 mg Documented by: Enoxaparin Sodium (Lovenox) 40 mg SUBCUT Q24H [facility] Last Admin: 05/01/20 17:18 Dose: 40 mg Documented by: Fentanyl (Sublimaze) 50 mcg IVPUSH Q6H PRN PRN Reason: Pain (severe 7-10) Fish Oil (Fish Oil) 1 gm PO DAILY [facility] Last Admin: 05/02/20 08:34 Dose: 1 gm Documented by: Fluticasone Propionate (Flonase) 0 gm [place] DAILY [facility] Last Admin: 05/02/20 08:35 Dose: 1 spray Documented by: Levetiracetam (Keppra) 250 mg PO BID [facility] Last Admin: 05/02/20 08:34 Dose: 250 mg Documented by: Lisinopril (Prinivil) 10 mg PO DAILY [facility] Last Admin: 05/02/20 08:34 Dose: 10 mg Documented by: Loratadine (Claritin) 10 mg PO BEDTIME [facility] Last Admin: 05/01/20 20:16 Dose: 10 mg Documented by: Olanzapine (Zyprexa) 2.5 mg PO BEDTIME [facility] Last Admin: 05/01/20 20:16 Dose: 2.5 mg Documented by: Ondansetron HCl (Zofran) 4 mg IV Q6H PRN PRN Reason: Nausea/Vomiting Pantoprazole Sodium (Protonix) 40 mg PO BIDAC [facility] Last Admin: 05/02/20 07:45 Dose: 40 mg Documented by: Simvastatin (Zocor) 20 mg PO BEDTIME [facility] Last Admin: 05/01/20 20:17 Dose: 20 mg Documented by: Sodium Chloride (Saline Flush) 10 ml FLUSH ASDIRECTED PRN PRN Reason: Keep Vein Open Last Admin: 04/30/20 22:30 Dose: 10 ml Documented by: Tamsulosin HCl (Flomax) 0.4 mg PO BEDTIME [facility] Last Admin: 05/01/20 20:16 Dose: 0.4 mg Documented by: Tiotropium [place] (Spiriva Respimat) 0 gm INH DAILY@0700 [facility] Last Admin: 05/02/20 07:18 Dose: 4 gm Documented by: Discontinued Medications Fentanyl (Sublimaze) 50 mcg IVPUSH ONETIME ONE Stop: 04/30/20 20:11 Last Admin: 04/30/20 20:22 Dose: 50 mcg Documented by: Lactated Ringer's (Ringers, Lactated) 1,000 mls @ 999 mls/hr IV ASDIRECTED [facility] Last Admin: 04/30/20 20:21 Dose: 500 mls/hr Documented by: Sodium Chloride (Normal Saline) 1,000 mls @ 125 mls/hr IV ASDIRECTED [facility] Last Admin: 05/01/20 08:35 Dose: 125 mls/hr Documented by: Lorazepam (Ativan) 1 mg IVPUSH ONETIME ONE Stop: 04/30/20 21:53 Last Admin: 04/30/20 22:06 Dose: 1 mg Documented by: Octreotide Acetate (Sandostatin) 50 mcg IVPUSH ONETIME ONE Stop: 04/30/20 22:19 Last Admin: 04/30/20 22:29 Dose: 50 mcg Documented by: Pantoprazole Sodium (Protonix Iv) 40 mg IVPUSH ONETIME ONE Stop: 04/30/20 22:18 Last Admin: 04/30/20 22:29 Dose: 40 mg Documented by: Prochlorperazine Edisylate (Compazine) 5 mg IVPUSH ONETIME ONE Stop: 04/30/20 20:11 Last Admin: 04/30/20 20:22 Dose: 5 mg Documented by: - Exam General: Reports: Alert, Oriented, Cooperative, No Acute Distress Lungs: Reports: Clear to Auscultation, Normal Respiratory Effort Cardiovascular: Reports: Regular Rate, Regular Rhythm, No Murmurs GI/Abdominal Exam: Soft, Non-Tender, No Organomegaly, No Distention Extremities: Non-Tender, No Pedal Edema
[2020-05-02] MEDS: Enoxaparin 40 MG/0.4 ML Syringe SUBCUT SCH (15:41)
== END 2020-05-02 17:05 | disposition home or self-care (01) ==
LOC: JP.ED 19:18 → JP.ICU 23:28 → JP.MS 05-01 14:25
PROVIDERS: ADMIT Hospitalist; ATTEND Hospitalist
DX: K52.9 Noninfective gastroenteritis and colitis, unspecified (principal); I25.10 Atherosclerotic heart disease of native coronary artery without angina pectoris; F03.90 Unspecified dementia, unspecified severity, without behavioral disturbance, psychotic disturbance, mood disturbance, and anxiety; I12.9 Hypertensive chronic kidney disease with stage 1 through stage 4 chronic kidney disease, or unspecified chronic kidney disease; E11.22 Type 2 diabetes mellitus with diabetic chronic kidney disease; E86.0 Dehydration; N20.0 Calculus of kidney; K44.9 Diaphragmatic hernia without obstruction or gangrene; N18.32 Chronic kidney disease, stage 3b; Z79.899 Other long term (current) drug therapy
CPT/HCPCS: 36415; 74176; 80048; 80053; 83605; 83690; 84484; 85025; 93005; 94640; 96372; 96374; 96375; 99285; A9270; C9113; G0378; J0780; J1650; J2060; J2354; J3010; J7030; J7120

== ENCOUNTER 2020-06-13 09:36 | Emergency (ER) | payer MEDICAID, MEDICARE ==
--- NOTE | 2020-06-13 10:06 | EDM.PDOC ---
ED HPI GENERAL MEDICAL PROBLEM - General Chief Complaint: Neurological Problem Stated Complaint: FROM [facility]BI[facility] TINEO Time Seen by Provider: 06/13/20 10:02 Source of Information: Reports: Patient, EMS, [facility] History Limitations: Reports: No Limitations - History of Present Illness INITIAL COMMENTS - FREE TEXT/NARRATIVE: pt had 2 seizures this am and then a small one just as he was being loaded. He does have a history of seizure disorders and is presently on keppara. Onset: Today, Sudden Duration: Hour(s): Location: Reports: Head, Generalized Associated Symptoms: Reports: Other (pt had seizures this am. ) - Related Data Allergies Allergy/AdvReac Type Severity Reaction Status Date / Time No Known Allergies Allergy Verified 06/13/20 09:49 Home Meds: Home Meds DULoxetine HCl [Duloxetine HCl] 20 mg PO DAILY 04/30/20 [History] Fluticasone Propionate [Flonase] 2 spray NS DAILY 04/30/20 [History] Loratadine 10 mg PO BEDTIME 04/30/20 [History] OLANZapine [Olanzapine] 2.5 mg PO BEDTIME 04/30/20 [History] [place]-3 Fatty Acids/Fish Oil [Fish Oil 1,000 mg Capsule] 1 cap PO DAILY 04/30/20 [History] Simvastatin [Zocor] 20 mg PO DAILY 04/30/20 [History] Tamsulosin HCl [Flomax] 1 cap PO BEDTIME 04/30/20 [History] Tiotropium [place] [Spiriva Respimat] 2 puff IH DAILY 04/30/20 [History] levETIRAcetam [Keppra] 250 mg PO BID 04/30/20 [History] lisinopriL [Lisinopril] 10 mg PO DAILY 04/30/20 [History] Pantoprazole [ProTONIX] 40 mg PO DAILY #30 tab.cr 05/02/20 [Rx] Metoprolol Tartrate 12.5 mg PO BID 06/13/20 [History] Past Medical History HEENT History: Reports: Impaired Vision, Sinusitis Cardiovascular History: Reports: Hypertension, Other (See Below) Other Cardiovascular History: heart disease Respiratory History: Reports: COPD, Other (See Below) Other Respiratory History: emphysema Gastrointestinal History: Reports: GERD Genitourinary History: Reports: Renal Disease Other Genitourinary History: stage 3 renal disease Neurological History: Reports: Seizure Psychiatric History: Reports: Anxiety, Dementia Endocrine/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, Type II - Infectious Disease History Infectious Disease History: Reports: Chicken Pox, Measles, Mumps - Past Surgical History Head Surgeries/Procedures: Reports: None HEENT Surgical History: Reports: Cataract Surgery Cardiovascular Surgical History: Reports: None Respiratory Surgical History: Reports: None GI Surgical History: Reports: None Endocrine Surgical History: Reports: None Social & Family History - Tobacco Use Tobacco Use Status *Q: Current Every Day Tobacco User Years of Tobacco use: 50 Packs/Tins Daily: 0.1 Used Tobacco, but Quit: No Second Hand Smoke Exposure: No - Caffeine Use Caffeine Use: Reports: Coffee - Recreational Drug Use Recreational Drug Use: No ED ROS GENERAL - Review of Systems Review Of Systems: See Below Constitutional: Reports: Weakness, Other (pt did have 3 seizures today. ) HEENT: Reports: No Symptoms Respiratory: Reports: No Symptoms Cardiovascular: Reports: No Symptoms Endocrine: Reports: No Symptoms GI/Abdominal: Reports: No Symptoms : Reports: No Symptoms Musculoskeletal: Reports: No Symptoms Neurological: Reports: Seizure, Other (pt had 3 seizures this am. ) Psychiatric: Reports: Confusion, Other (pt has a history of dementia. ) ED EXAM, NEURO - Physical Exam Exam: See Below Text/Narrative:: pt is here from the memory unit at [facility]. He had 3 seizures this am. He is a known seizure pt and is on keppara. He is on a low dose of keppara. He has not had a fever. Exam Limited By: No Limitations General Appearance: Alert, No Apparent Distress, Anxious, Other (pt has not had further seizures since arrival) Ears: Normal TMs Nose: Normal Inspection Throat/Mouth: Normal Inspection Head Exam: Atraumatic Neck: Normal Inspection Respiratory/Chest: No Respiratory Distress Cardiovascular: Regular Rate, Rhythm GI/Abdominal: Soft, Non-Tender (Male) Exam: Deferred Rectal (Males) Exam: Decreased Rectal Tone Neurological: Alert, Other (pt is answering question fairly good at this point. ) Back Exam: Normal Inspection Extremities: Normal Inspection Psychiatric: Normal Affect Course - Vital Signs Last Recorded V/S: Last Vital Signs Temp 35.7 C L 06/13/20 09:58 Pulse 106 H 06/13/20 13:09 Resp 26 H 06/13/20 10:56 BP 115/80 06/13/20 13:09 Pulse Ox 92 L 06/13/20 10:56 - Orders/Labs/Meds Orders: Active Orders 24 hr Category Date Time Status CULTURE URINE [RM] Stat Lab 06/13/20 11:50 Received LEVETIRACETAM (KEPPRA), S Stat Lab 06/13/20 10:04 Ordered Sodium Chloride 0.9% [Normal Saline] 1,000 ml Med 06/13/20 11:45 Active IV ASDIRECTED Medication Orders Sodium Chloride (Normal Saline) 1,000 mls @ 500 mls/hr IV ASDIRECTED GABY Last Admin: 06/13/20 11:43 Dose: 500 mls/hr Documented by: VIOLET Labs: Laboratory Tests 06/13/20 06/13/20 06/13/20 Range/Units 09:51 10:18 11:18 WBC 7.4 (4.5-11.0) K/uL RBC 3.65 L (4.30-5.90) M/uL Hgb 11.3 L (12.0-15.0) g/dL Hct 34.9 L (40.0-54.0) % MCV 96 (80-98) fL MCH 31 (27-31) pg MCHC 32 (32-36) % Plt Count 310 (150-400) K/uL Neut % (Auto) 79 H (36-66) % Lymph % (Auto) 13 L (24-44) % [place] % (Auto) 7 H (2-6) % Eos % (Auto) 1 L (2-4) % Baso % (Auto) 0 (0-1) % Sodium 140 (140-148) mmol/L Potassium 4.2 (3.6-5.2) mmol/L Chloride 105 (100-108) mmol/L Carbon Dioxide 17 L (21-32) mmol/L Anion Gap 22.2 H (5.0-14.0) mmol/L BUN 36 H (7-18) mg/dL Creatinine 2.1 H (0.8-1.3) mg/dL Est Cr Clr Drug Dosing 27.40 mL/min Estimated GFR (MDRD) 31 L (>60) Glucose 152 H (74-106) mg/dL Calcium 8.4 L (8.5-10.1) mg/dL Total Bilirubin 0.6 (0.2-1.0) mg/dL AST 13 L (15-37) U/L ALT 21 (12-78) U/L Alkaline Phosphatase 83 (46-116) U/L Total Protein 6.5 (6.4-8.2) g/dL Albumin 3.4 (3.4-5.0) g/dL Globulin 3.1 (2.3-3.5) g/dL Albumin/Globulin Ratio 1.1 L (1.2-2.2) Urine Color Yellow (YELLOW) Urine Appearance Cloudy A (CLEAR) Urine pH 5.5 (5.0-8.0) Ur Specific [place] 1.025 (1.008-1.030) Urine Protein 100 H (NEGATIVE) mg/dL Urine Glucose (UA) Negative (NEGATIVE) mg/dL Urine Ketones Trace H (NEGATIVE) mg/dL Urine Occult Blood Moderate H (NEGATIVE) Urine Nitrite Negative (NEGATIVE) Urine Bilirubin Moderate H (NEGATIVE) Urine Urobilinogen 0.2 (0.2-1.0) EU/dL Ur Leukocyte Esterase Negative (NEGATIVE) Urine RBC 10-20 H (0-5) Urine WBC 0-5 (0-5) Ur Epithelial Cells Not seen Amorphous Sediment Not seen Urine Bacteria Rare Urine Mucus Not seen Meds: Medications Generic Name Dose Route Start Last Admin Trade Name Freq PRN Reason Stop Dose Admin Sodium Chloride 1,000 mls @ 500 mls/hr 06/13/20 11:45 06/13/20 11:43 Normal Saline IV 500 mls/hr ASDIRECTED GABY Administration Discontinued Medications Generic Name Dose Route Start Last Admin Trade Name Garima PRN Reason Stop Dose Admin Levetiracetam 250 mg 06/13/20 10:23 06/13/20 10:43 Keppra PO 06/13/20 10:24 250 mg BID ONE Administration Lidocaine HCl 10 ml 06/13/20 10:59 Xylocaine 2% Jelly MUCMEM 06/13/20 11:00 ONETIME ONE Oxycodone/Acetaminophen 1 tab 06/13/20 11:07 06/13/20 11:44 Percocet 325-5 Mg PO 06/13/20 11:08 1 tab ONETIME ONE Administration - Re-Assessments/Exams Free Text/Narrative Re-Assessment/Exam: 06/13/20 13:18 pt had a keppara level drawn. He appeared to be somewhat dehydrated. He has been given fluids. A cat scan of the head was neg for any changes. that are acute. He was given another keppara 250 mg po. Departure - Departure Time of Disposition: 13:48 Disposition: Home, Self-Care 01 Condition: Fair Clinical Impression: Diabetes mellitus, Seizure disorder, Dehydration - Discharge Information Referrals: PCP,None [Primary Care Provider] - Forms: ED Department Discharge Care Plan Goals: keppara level is pending and should be back next week, increase keppara to 250 qam and 500mg hs. This may need to be adjusted depending on the keppara level. push fluids. Pt appears to be eating very poorly Sepsis Event Note (ED) - Evaluation Sepsis Screening Result: No Definite Risk - Focused Exam Vital Signs: Vital Signs Temp Pulse Resp BP Pulse Ox 06/13/20 13:09 106 H 115/80 06/13/20 12:18 111 H 119/77 06/13/20 11:34 109 H 120/90 06/13/20 10:56 116 H 26 H 118/79 92 L 06/13/20 09:58 35.7 C L 111 H 18 112/82 92 L 06/13/20 09:49 35.7 C L 111 H 18 112/82 92 L - My Orders Last 24 Hours: My Active Orders 06/13/20 10:04 LEVETIRACETAM (KEPPRA), S Stat 06/13/20 11:45 Sodium Chloride 0.9% [Normal Saline] 1,000 ml IV ASDIRECTED 06/13/20 11:50 CULTURE URINE [RM] Stat - Assessment/Plan Last 24 Hours: My Active Orders 06/13/20 10:04 LEVETIRACETAM (KEPPRA), S Stat 06/13/20 11:45 Sodium Chloride 0.9% [Normal Saline] 1,000 ml IV ASDIRECTED 06/13/20 11:50 CULTURE URINE [RM] Stat
[2020-06-13] MEDS ORDERED: levETIRAcetam 250 MG Tab PO ONE (10:23)
[2020-06-13] MEDS ORDERED: Lidocaine 2% Jelly 10 ML Urojet MUCMEM ONE (10:59)
[2020-06-13] MEDS ORDERED: Acetaminophen/oxyCODONE 325-5 MG Tab PO ONE (11:07)
--- NOTE | 2020-06-13 11:11 | CRLCT ---
INDICATION: Seizure. TECHNIQUE: Head CT without contrast. COMPARISON: None FINDINGS: CSF spaces: Mild problem for age. Brain parenchyma: There are nonspecific low attenuation white matter changes consistent with chronic microvascular disease. No sign of mass, hemorrhage, or midline shift. Skull base and calvarium: The visualized paranasal sinuses and mastoid air cells are clear. The visualized orbits are grossly unremarkable. No skull fractures. There is intracranial atherosclerosis. IMPRESSION: 1. No acute findings. 2. Nonspecific white matter disease, typical of chronic microvascular disease. Mild global atrophy. Please note that all CT scans at this facility use dose modulation, iterative reconstruction, and/or weight-based dosing when appropriate to reduce radiation dose to as low as reasonably achievable. Dictated by Kimani Peralta MD @ Jun 13 2020 11:08AM Signed by Dr. Kimani Peralta @ Jun 13 2020 11:08AM
[2020-06-13] MEDS ORDERED: Sodium Chloride 0.9% 1,000 ML IV SCH (11:45)
[2020-06-13] MEDS ORDERED: Ondansetron 4 MG/2 ML SDV IVPUSH ONE (15:37)
== END 2020-06-13 16:50 | disposition home or self-care (01) ==
LOC: JP.ED 09:36
DX: G40.909 Epilepsy, unspecified, not intractable, without status epilepticus (principal); E11.9 Type 2 diabetes mellitus without complications; E86.0 Dehydration; I10 Essential (primary) hypertension; J44.9 Chronic obstructive pulmonary disease, unspecified; F03.90 Unspecified dementia, unspecified severity, without behavioral disturbance, psychotic disturbance, mood disturbance, and anxiety; F17.210 Nicotine dependence, cigarettes, uncomplicated; F41.9 Anxiety disorder, unspecified; K21.9 Gastro-esophageal reflux disease without esophagitis; Z79.899 Other long term (current) drug therapy
CPT/HCPCS: 36415; 70450; 80053; 80177; 81001; 85025; 87086; 96374; 99285; A9270; J2405; J7030

== ENCOUNTER 2020-07-19 21:48 | Observation (INO) | payer MEDICARE ==
--- NOTE | 2020-07-19 22:41 | EDM.PDOC ---
ED HPI GENERAL MEDICAL PROBLEM - General Chief Complaint: Cardiovascular Problem Stated Complaint: [facility] Time Seen by Provider: 07/19/20 22:00 Source of Information: Reports: Patient, EMS, Alf Records History Limitations: Reports: No Limitations - History of Present Illness INITIAL COMMENTS - FREE TEXT/NARRATIVE: 79-year-old male with a chronic history of seizures who has had apparently 3 seizures today at the correction. Is also had some nausea and vomiting, in the past when he has had seizures it is indicated something wrong with his bowel like GI bleed. However his current evaluation shows atrial fibrillation with RVR which is a new diagnosis. It is unsure how long he has had this. His only complaint is nausea although he did arrive somewhat confused. Onset: Unknown/Unsure Associated Symptoms: Reports: Confusion, Malaise, Nausea/Vomiting. Denies: Shortness of Breath - Related Data Allergies Allergy/AdvReac Type Severity Reaction Status Date / Time bee venom protein (honey bee) Allergy Other Verified 07/19/20 22:01 donepezil [From Aricept] Allergy Other Verified 07/19/20 22:01 memantine [From Namenda] Allergy Other Verified 07/19/20 22:01 tramadol Allergy Other Verified 07/19/20 22:01 Home Meds: Home Meds Fluticasone Propionate [Flonase] 2 spray NS DAILY 04/30/20 [History] Loratadine 10 mg PO BEDTIME 04/30/20 [History] [place]-3 Fatty Acids/Fish Oil [Fish Oil 1,000 mg Capsule] 1 cap PO DAILY 04/30/20 [History] Simvastatin [Zocor] 20 mg PO DAILY 04/30/20 [History] Tamsulosin HCl [Flomax] 1 cap PO BEDTIME 04/30/20 [History] Tiotropium [place] [Spiriva Respimat] 2 puff IH DAILY 04/30/20 [History] levETIRAcetam [Keppra] 250 mg PO DAILY 04/30/20 [History] lisinopriL [Lisinopril] 10 mg PO DAILY 04/30/20 [History] Pantoprazole [ProTONIX] 40 mg PO DAILY #30 tab.cr 05/02/20 [Rx] Metoprolol Tartrate 12.5 mg PO BID 06/13/20 [History] Acetaminophen [Pain Relief Extra Strength] 1,000 mg PO BID 07/19/20 [History] DULoxetine HCl [Duloxetine HCl] 40 mg PO DAILY 07/19/20 [History] Lactase [Lactaid] 3,000 unit PO DAILY 07/19/20 [History] Mesalamine 2 tab PO TID 07/19/20 [History] Mirtazapine [Remeron] 15 mg PO BEDTIME 07/19/20 [History] levETIRAcetam [Keppra] 500 mg PO BEDTIME 07/19/20 [History] Past Medical History HEENT History: Reports: Impaired Vision, Sinusitis Cardiovascular History: Reports: Hypertension, Other (See Below) Other Cardiovascular History: heart disease Respiratory History: Reports: COPD, Other (See Below) Other Respiratory History: emphysema Gastrointestinal History: Reports: GERD Genitourinary History: Reports: Renal Disease Other Genitourinary History: stage 3 renal disease Neurological History: Reports: Seizure Psychiatric History: Reports: Anxiety, Dementia Endocrine/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, Type II - Infectious Disease History Infectious Disease History: Reports: Chicken Pox, Measles, Mumps - Past Surgical History Head Surgeries/Procedures: Reports: None HEENT Surgical History: Reports: Cataract Surgery Cardiovascular Surgical History: Reports: None Respiratory Surgical History: Reports: None GI Surgical History: Reports: None Endocrine Surgical History: Reports: None Social & Family History - Caffeine Use Caffeine Use: Reports: Coffee ED ROS GENERAL - Review of Systems Review Of Systems: See Below Constitutional: Reports: Malaise. Denies: Fever, Chills HEENT: Denies: Vision Change Respiratory: Denies: Shortness of Breath Cardiovascular: Denies: Palpitations GI/Abdominal: Reports: Abdominal Pain, Nausea, Vomiting ED EXAM, GENERAL - Physical Exam Exam: See Below Exam Limited By: No Limitations General Appearance: Alert, No Apparent Distress Eye Exam: Bilateral Eye: Normal Inspection Head: Atraumatic Respiratory/Chest: Lungs Clear Cardiovascular: Tachycardia, Irregularly Irregular GI/Abdominal: Normal Bowel Sounds, Soft, Tender (Reacts with some mild discomfort with palpation of the abdomen but no focal tenderness or guarding) Extremities: No: Pedal Edema Neurological: Alert, Oriented Psychiatric: Flat Affect Skin Exam: Warm, Dry Course - Vital Signs Last Recorded V/S: Last Vital Signs Temp 97.1 F 07/20/20 01:30 Pulse 132 H 07/20/20 00:32 Resp 18 07/20/20 02:00 BP 126/77 07/20/20 02:00 Pulse Ox 94 L 07/20/20 02:00 - Orders/Labs/Meds Orders: Active Orders 24 hr Category Date Time Status LEVETIRACETAM (KEPPRA), S Stat Lab 07/19/20 22:55 Received Diltiazem [Cardizem] 100 mg Med 07/19/20 23:45 Active Sodium Chloride 0.9% [Normal Saline] 100 ml IV TITRATE Sodium Chloride 0.9% [Normal Saline] 1,000 ml Med 07/19/20 23:45 Active IV ASDIRECTED Medication Orders Acetaminophen (Tylenol) 650 mg PO Q4H PRN PRN Reason: Pain (Mild 1-3)/fever Acetaminophen (Tylenol Extra Strength) 1,000 mg PO BID [facility] Duloxetine HCl (Cymbalta) 40 mg PO DAILY [facility] Fish Oil (Fish Oil) 1 gm PO DAILY [facility] Fluticasone Propionate (Flonase) 0 gm NASBOTH DAILY [facility] Diltiazem HCl 100 mg/ Sodium (Chloride) 100 mls @ 5 mls/hr IV TITRATE [facility]; Protocol Last Admin: 07/20/20 01:37 Dose: 5 mg/hr, 5 mls/hr Documented by: BARRERAEA Sodium Chloride (Normal Saline) 1,000 mls @ 500 mls/hr IV ASDIRECTED G[facility]Y Last Admin: 07/20/20 00:01 Dose: 500 mls/hr Documented by: JOSE LUISLIS Sodium Chloride (Normal Saline) 1,000 mls @ 125 mls/hr IV ASDIRECTED [facility] Levetiracetam (Keppra) 250 mg PO DAILY [facility] Levetiracetam (Keppra) 500 mg PO BEDTIME [facility] Lisinopril (Prinivil) 10 mg PO DAILY [facility] Loratadine (Claritin) 10 mg PO BEDTIME [facility] Metoprolol Tartrate (Lopressor) 12.5 mg PO BID [facility] Mirtazapine (Remeron) 15 mg PO BEDTIME [facility] Non-Formulary Medication (Lactase [Lactaid]) 3,000 unit PO DAILY [facility] Non-Formulary Medication (Mesalamine [Mesalamine]) 2 tab PO TID [facility] Ondansetron HCl (Zofran) 4 mg IV Q4H PRN PRN Reason: Nausea/Vomiting Pantoprazole Sodium (Protonix) 40 mg PO ACBREAKFAST [facility] Simvastatin (Zocor) 20 mg PO DAILY [facility] Tamsulosin HCl (Flomax) 0.4 mg PO BEDTIME [facility] Tiotropium [place] (Spiriva Respimat) 0 gm .XX DAILY [facility] Labs: Laboratory Tests 07/19/20 07/19/20 Range/Units 22:55 22:55 WBC 14.1 H (4.5-11.0) K/uL RBC 4.17 L (4.30-5.90) M/uL Hgb 13.1 (12.0-15.0) g/dL Hct 41.3 (40.0-54.0) % MCV 99 H (80-98) fL MCH 31 (27-31) pg MCHC 32 (32-36) % Plt Count 449 H (150-400) K/uL Neut % (Auto) 88 H (36-66) % Lymph % (Auto) 8 L (24-44) % [place] % (Auto) 4 (2-6) % Eos % (Auto) 0 L (2-4) % Baso % (Auto) 0 (0-1) % Sodium 142 (140-148) mmol/L Potassium 4.2 (3.6-5.2) mmol/L Chloride 105 (100-108) mmol/L Carbon Dioxide 19 L (21-32) mmol/L Anion Gap 22.2 H (5.0-14.0) mmol/L BUN 29 H (7-18) mg/dL Creatinine 2.2 H (0.8-1.3) mg/dL Est Cr Clr Drug Dosing TNP Estimated GFR (MDRD) 29 L (>60) Glucose 191 H (74-106) mg/dL Calcium 9.6 (8.5-10.1) mg/dL Total Bilirubin 0.5 (0.2-1.0) mg/dL AST 27 D (15-37) U/L ALT 53 D (12-78) U/L Alkaline Phosphatase 101 (46-116) U/L Total Protein 7.4 (6.4-8.2) g/dL Albumin 3.6 (3.4-5.0) g/dL Globulin 3.8 H (2.3-3.5) g/dL Albumin/Globulin Ratio 1.0 L (1.2-2.2) Meds: Medications Generic Name Dose Route Start Last Admin Trade Name Freq PRN Reason Stop Dose Admin Acetaminophen 650 mg 07/20/20 00:20 Tylenol PO Q4H PRN Pain (Mild 1-3)/fever Acetaminophen 1,000 mg 07/20/20 09:00 Tylenol Extra Strength PO BID [facility] Duloxetine HCl 40 mg 07/20/20 09:00 Cymbalta PO DAILY [facility] Fish Oil 1 gm 07/20/20 09:00 Fish Oil PO DAILY [facility] Fluticasone Propionate 0 gm 07/20/20 09:00 Flonase NASBOTH DAILY [facility] Diltiazem HCl 100 mg/ Sodium 100 mls @ 5 mls/hr 07/19/20 23:45 07/20/20 01:37 Chloride IV 5 mg/hr TITRATE GABY 5 mls/hr Administration Protocol 5 MG/HR Sodium Chloride 1,000 mls @ 500 mls/hr 07/19/20 23:45 07/20/20 00:01 Normal Saline IV 500 mls/hr ASDIRECTED GABY Administration Sodium Chloride 1,000 mls @ 125 mls/hr 07/20/20 00:30 Normal Saline IV ASDIRECTED [facility] Levetiracetam 250 mg 07/20/20 09:00 Keppra PO DAILY [facility] Levetiracetam 500 mg 07/20/20 21:00 Keppra PO BEDTIME [facility] Lisinopril 10 mg 07/20/20 09:00 Prinivil PO DAILY [facility] Loratadine 10 mg 07/20/20 21:00 Claritin PO BEDTIME [facility] Metoprolol Tartrate 12.5 mg 07/20/20 09:00 Lopressor PO BID [facility] Mirtazapine 15 mg 07/20/20 21:00 Remeron PO BEDTIME [facility] Non-Formulary Medication 3,000 unit 07/20/20 09:00 Lactase [Lactaid] PO DAILY [facility] Non-Formulary Medication 2 tab 07/20/20 09:00 Mesalamine [Mesalamine] PO TID [facility] Ondansetron HCl 4 mg 07/20/20 00:20 Zofran IV Q4H PRN Nausea/Vomiting Pantoprazole Sodium 40 mg 07/20/20 07:30 Protonix PO ACBREAKFAST GABY Simvastatin 20 mg 07/20/20 09:00 Zocor PO DAILY [facility] Tamsulosin HCl 0.4 mg 07/20/20 21:00 Flomax PO BEDTIME [facility] Tiotropium [place] 0 gm 07/20/20 09:00 Spiriva Respimat .XX DAILY [facility] Discontinued Medications Generic Name Dose Route Start Last Admin Trade Name Nickq PRN Reason Stop Dose Admin Diltiazem HCl 10 mg 07/19/20 23:32 Diltiazem IVPUSH 07/19/20 23:33 ONETIME ONE Levetiracetam 250 mg/ Sodium 102.5 mls @ 400 mls/hr 07/19/20 22:03 07/19/20 22:59 Chloride IV 07/19/20 22:17 400 mls/hr ONETIME ONE Administration Sodium Chloride Confirm 07/19/20 23:01 07/19/20 23:08 Normal Saline Administered 07/19/20 23:02 Not Given Dose 100 mls @ as directed .ROUTE .STK-MED ONE Ondansetron HCl 4 mg 07/19/20 23:50 07/20/20 00:02 Zofran IVPUSH 07/19/20 23:51 4 mg ONETIME ONE Administration - Re-Assessments/Exams Free Text/Narrative Re-Assessment/Exam: 07/19/20 23:52 Patient remained in atrial fibrillation with RVR, hemoglobin returned 13.1. He has several episodes of emesis so IV hydration with normal saline at 500 cc an hour was started, he was given 4 mg of IV Zofran and a Cardizem drip after a 10 mg bolus was started to control his rate. He will need to be watched in ICU overnight. Dr. Conrad kindly agreed to admit him to the hospital. 07/19/20 23:53 White count was 14,100, creatinine BUN and anion gap are all consistent with his readings in June. 07/20/20 02:50 Due to persistent mild hypotension, the 10 mg bolus was DC'd and patient was just started on the drip before going to ICU. Departure - Departure Time of Disposition: 01:35 Disposition: Admitted As Inpatient 68 Clinical Impression: Atrial fibrillation with RVR, Seizure disorder Nausea & vomiting Qualifiers: Vomiting type: unspecified Vomiting Intractability: non-intractable Qualified Code(s): R11.2 - Nausea with vomiting, unspecified Sepsis Event Note (ED) - Focused Exam Vital Signs: Vital Signs Temp Pulse Resp BP Pulse Ox 07/20/20 00:12 130 H 111/68 07/19/20 23:53 92 25 H 102/68 92 L 07/19/20 23:39 140 H 22 H 91/50 L 91 L 07/19/20 22:16 140 H 22 H 91/69 94 L 07/19/20 22:00 138 H 22 H 88/52 L 94 L 07/19/20 21:48 95.9 F L 135 H 13 122/59 L 96 - My Orders Last 24 Hours: My Active Orders 07/19/20 22:55 LEVETIRACETAM (KEPPRA), S Stat 07/19/20 23:45 Diltiazem [Cardizem] 100 mg Sodium Chloride 0.9% [Normal Saline] 100 ml IV TITRATE Sodium Chloride 0.9% [Normal Saline] 1,000 ml IV ASDIRECTED - Assessment/Plan Last 24 Hours: My Active Orders 07/19/20 22:55 LEVETIRACETAM (KEPPRA), S Stat 07/19/20 23:45 Diltiazem [Cardizem] 100 mg Sodium Chloride 0.9% [Normal Saline] 100 ml IV TITRATE Sodium Chloride 0.9% [Normal Saline] 1,000 ml IV ASDIRECTED
[2020-07-19] MEDS ORDERED: Sodium Chloride 0.9% 100 ML ONE (23:01)
[2020-07-19] MEDS ORDERED: Diltiazem 25 MG/5 ML SDV IVPUSH ONE (23:32)
[2020-07-19] MEDS ORDERED: Diltiazem 100 MG in Sodium Chloride 0.9% 100 ML IV SCH (23:45)
[2020-07-19] MEDS ORDERED: Sodium Chloride 0.9% 1,000 ML IV SCH (23:45)
[2020-07-19] MEDS ORDERED: Ondansetron 4 MG/2 ML SDV IVPUSH ONE (23:50)
[2020-07-20] MEDS ORDERED: Ondansetron 4 MG/2 ML SDV IV PRN (00:20)
[2020-07-20] MEDS ORDERED: Acetaminophen 325 MG Tab PO PRN (00:20)
[2020-07-20] MEDS ORDERED: Sodium Chloride 0.9% 1,000 ML IV SCH (00:30)
[2020-07-20] MEDS ORDERED: MESALAMINE PO SCH (09:00)
[2020-07-20] MEDS: Pantoprazole 40 MG Tab.CR PO SCH (10:37)
[2020-07-20] MEDS: Fish Oil/Omega-3 Fatty Acids 1 Gm Cap PO SCH (10:37)
[2020-07-20] MEDS: levETIRAcetam 250 MG Tab PO SCH (10:37)
[2020-07-20] MEDS: Lisinopril 10 MG Tab PO SCH (10:37)
[2020-07-20] MEDS: Simvastatin 20 MG Tab PO SCH (10:37)
[2020-07-20] MEDS: DULoxetine 20 MG Cap PO SCH (10:37)
[2020-07-20] MEDS: Acetaminophen 500 MG Tab PO SCH ×2 (10:38→21:51)
[2020-07-20] MEDS: Metoprolol Tartrate 25 MG Tab PO SCH ×2 (10:38→21:46)
[2020-07-20] MEDS: LACTAID PO SCH (10:39)
[2020-07-20] MEDS: Fluticasone Propionate Nasal Spray 16 GM Bottle NASBOTH SCH (10:39)
[2020-07-20] MEDS: Tiotropium Bromide 4 GM Inhalation Spray (2.5mcg/1 dose; 10 doses) SCH (10:40)
--- NOTE | 2020-07-20 10:49 | HP ---
CHIEF COMPLAINT: Seizure. HISTORY OF PRESENT ILLNESS: A 79-year-old with history of seizure disorder. Apparently had 3 seizures, when he has had seizures in the past, more so than just occasional. There is a medical reason that may be precipitating it. It sounds like he had some vomiting after this, did throw up once here in the emergency room. He initially did not complain of any abdominal pain, but then had some right upper quadrant abdominal pain. Apparently, he has had some stomach problems in the past, possibly a GI bleed on previous hospitalization. When he arrived in the emergency room, he was noted to have atrial fibrillation with rapid ventricular response, and the emergency room physician could not see that he had a history of this in the past. I was asked to admit the patient for further evaluation and treatment to ICU on Cardizem drip, although they have not been able to start it yet because of some hypotension. The patient denies any chest pain. No shortness of breath. Does have some nausea with right upper quadrant discomfort. PAST MEDICAL HISTORY: 1. Type 2 diabetes mellitus with peripheral neuropathy. 2. Gastroesophageal reflux disease. 3. Chronic maxillary sinusitis. 4. Hyperlipidemia. 5. Atherosclerotic coronary artery disease. 6. Diverticulosis of intestine. 7. Alzheimer dementia. 8. Essential hypertension. 9. Seizure disorder. 10.Anxiety. 11.BPH. 12.COPD. 13.Depression. 14.PTSD. MEDICATIONS: 1. Acetaminophen 1000 mg b.i.d. 2. Fluoxetine 40 mg daily. 3. Flonase nasal spray 2 sprays in each nostril daily. 4. Lactase 3000 units daily. 5. Keppra 250 mg in the morning and 500 at bedtime. 6. Lisinopril 10 mg daily. 7. Loratadine 10 mg at bedtime. 8. Mesalamine 800 mg 2 tablets t.i.d. 9. Metoprolol 12.5 mg b.i.d. 10.Mirtazapine 15 mg at bedtime. 11.[place]-3 fish oil daily. 12.Pantoprazole 40 mg daily. 13.Simvastatin 20 mg daily. 14.Tamsulosin 0.4 mg daily. 15.Spiriva inhaler 2 puffs daily. ALLERGIES: TO BEE VENOM, DONEPEZIL, AMANTADINE, TRAMADOL. SOCIAL HISTORY: Not currently smoking. Of note, there is a history of smoking in the past. He resides at [facility]. FAMILY HISTORY: Not known. REVIEW OF SYSTEMS: Denies upper respiratory symptoms, cough, shortness of breath, or chest pain. Initially did not have abdominal pain, but now complains of some right upper quadrant abdominal pain and did have some nausea with vomiting tonight. Denies any urinary problems. No fall trouble reported. No swelling in his legs. No skin problems reported. No neurologic complaints reported. OBJECTIVE: VITAL SIGNS: Weight 65 kg. Pulse 130s, blood pressure 88/52, respirations 22, and O2 saturation 94% on room air. GENERAL: The patient believes has some dementia. I do not know what his baseline is. HEENT: Pharynx, slightly dry mucous membranes in his mouth. NECK: Supple. No adenopathy, thyromegaly, JVD, or carotid bruits. LUNGS: Clear. HEART: Irregularly irregular with tachycardia. ABDOMEN: Soft. Did have some right upper quadrant abdominal pain. There is no distention. No mass or organomegaly palpated. EXTREMITIES: No edema. SKIN: Negative. NEUROLOGIC: Cranial nerves 2 through 12 appear to be grossly intact. Does appear to be slightly confused. LABORATORY DATA: White count 14.1, hemoglobin 13.1, platelets 449,000 with 88% neutrophils, 8% lymphocytes. Sodium 142, potassium 4.2, BUN is 29, creatinine 2.2, glucose 191. Liver functions were normal. COVID test is pending. ASSESSMENT: 1. New atrial fibrillation with rapid ventricular response. Attempt at starting Cardizem drip, but has hypotension. We will admit him to the ICU under observation. Anticipate less than 2 midnight stays. Check COVID just to make sure that this is not a precipitating factor. 2. Seizure disorder. It sounds like he did have seizures today and was given extra Keppra by the emergency room physician, which we will watch. Continue with his regular Keppra. 3. Type 2 diabetes mellitus with peripheral neuropathy. 4. Gastroesophageal reflux disease. 5. Other medical problems as listed above. Tang Conrad MD /[id number]
--- NOTE | 2020-07-20 10:52 | PCM.PN ---
- General Info Date of Service: 07/20/20 Subjective Update: Mr. Dawn is a 79-year-old gentleman who was admitted through the emergency department with recurrent seizures and new onset of atrial fibrillation with rapid ventricular response. Mr. Farris does have some difficulty with dementia and confusion and is unable to provide a meaningful history concerning symptoms or review of systems. Noted to have 3 seizures yesterday by nursing staff and brought into the emergency department for further evaluation. White blood cell count was elevated but there was no other evidence of underlying infection. He was found to have a rapid heart rate with underlying atrial fibrillation, duration unknown. - Patient Data Vitals - Most Recent: Last Vital Signs Temp 97.1 F 07/20/20 01:30 Pulse 85 07/20/20 10:38 Resp 21 H 07/20/20 10:00 BP 123/62 07/20/20 10:38 Pulse Ox 98 07/20/20 10:00 Weight - Most Recent: 141 lb I&O - Last 24 Hours: Intake & Output 07/19/20 07/20/20 07/20/20 22:59 06:59 14:59 Intake Total 508 Balance 508 Lab Results Last 24 Hours: Laboratory Results - last 24 hr 07/19/20 07/19/20 07/20/20 Range/Units 22:55 22:55 00:49 WBC 14.1 H (4.5-11.0) K/uL RBC 4.17 L (4.30-5.90) M/uL Hgb 13.1 (12.0-15.0) g/dL Hct 41.3 (40.0-54.0) % MCV 99 H (80-98) fL MCH 31 (27-31) pg MCHC 32 (32-36) % Plt Count 449 H (150-400) K/uL Neut % (Auto) 88 H (36-66) % Lymph % (Auto) 8 L (24-44) % [place] % (Auto) 4 (2-6) % Eos % (Auto) 0 L (2-4) % Baso % (Auto) 0 (0-1) % Sodium 142 (140-148) mmol/L Potassium 4.2 (3.6-5.2) mmol/L Chloride 105 (100-108) mmol/L Carbon Dioxide 19 L (21-32) mmol/L Anion Gap 22.2 H (5.0-14.0) mmol/L BUN 29 H (7-18) mg/dL Creatinine 2.2 H (0.8-1.3) mg/dL Est Cr Clr Drug Dosing TNP Estimated GFR (MDRD) 29 L (>60) Glucose 191 H (74-106) mg/dL Calcium 9.6 (8.5-10.1) mg/dL Total Bilirubin 0.5 (0.2-1.0) mg/dL AST 27 D (15-37) U/L ALT 53 D (12-78) U/L Alkaline Phosphatase 101 (46-116) U/L Total Protein 7.4 (6.4-8.2) g/dL Albumin 3.6 (3.4-5.0) g/dL Globulin 3.8 H (2.3-3.5) g/dL Albumin/Globulin Ratio 1.0 L (1.2-2.2) SARS CoV-2 RNA Rapid SARITA Negative 07/20/20 07/20/20 Range/Units 04:20 04:20 WBC 14.8 H (4.5-11.0) K/uL RBC 3.93 L (4.30-5.90) M/uL Hgb 12.5 (12.0-15.0) g/dL Hct 39.2 L (40.0-54.0) % MCV 100 H (80-98) fL MCH 32 H (27-31) pg MCHC 32 (32-36) % Plt Count 349 (150-400) K/uL Neut % (Auto) (36-66) % Lymph % (Auto) (24-44) % [place] % (Auto) (2-6) % Eos % (Auto) (2-4) % Baso % (Auto) (0-1) % Sodium 144 (140-148) mmol/L Potassium 4.2 (3.6-5.2) mmol/L Chloride 108 (100-108) mmol/L Carbon Dioxide 20 L (21-32) mmol/L Anion Gap 20.2 H (5.0-14.0) mmol/L BUN 30 H (7-18) mg/dL Creatinine 2.1 H (0.8-1.3) mg/dL Est Cr Clr Drug Dosing 26.78 Estimated GFR (MDRD) 31 L (>60) Glucose 158 H (74-106) mg/dL Calcium 9.0 (8.5-10.1) mg/dL Total Bilirubin (0.2-1.0) mg/dL AST (15-37) U/L ALT (12-78) U/L Alkaline Phosphatase (46-116) U/L Total Protein (6.4-8.2) g/dL Albumin (3.4-5.0) g/dL Globulin (2.3-3.5) g/dL Albumin/Globulin Ratio (1.2-2.2) SARS CoV-2 RNA Rapid SARITA Med Orders - Current: Current Medications Acetaminophen (Tylenol) 650 mg PO Q4H PRN PRN Reason: Pain (Mild 1-3)/fever Acetaminophen (Tylenol Extra Strength) 1,000 mg PO BID [facility] [place] Last Admin: 07/20/20 10:38 Dose: 1,000 mg Documented by: Diltiazem HCl (Cardizem) 30 mg PO Q6HR [facility] [place] Duloxetine HCl (Cymbalta) 40 mg PO DAILY [facility] [place] Last Admin: 07/20/20 10:37 Dose: 40 mg Documented by: Fish Oil (Fish Oil) 1 gm PO DAILY [facility] [place] Last Admin: 07/20/20 10:37 Dose: 1 gm Documented by: Fluticasone Propionate (Flonase) 0 gm NASBOTH DAILY [facility] [place] Last Admin: 07/20/20 10:39 Dose: Not Given Documented by: Levetiracetam (Keppra) 250 mg PO DAILY [facility] [place] Last Admin: 07/20/20 10:37 Dose: 250 mg Documented by: Levetiracetam (Keppra) 500 mg PO BEDTIME [facility] [place] Lisinopril (Prinivil) 10 mg PO DAILY [facility] [place] Last Admin: 07/20/20 10:37 Dose: 10 mg Documented by: Loratadine (Claritin) 10 mg PO BEDTIME [facility] [place] Metoprolol Tartrate (Lopressor) 12.5 mg PO BID [facility] [place] Last Admin: 07/20/20 10:38 Dose: 12.5 mg Documented by: Mirtazapine (Remeron) 15 mg PO BEDTIME [facility] [place] Lactaid 3,000 Unit * (*Ptom) 3,000 unit PO DAILY [facility] [place] Last Admin: 07/20/20 10:39 Dose: Not Given Documented by: Non-Formulary Medication (Mesalamine [Mesalamine]) 2 tab PO TID [facility] [place] Ondansetron HCl (Zofran) 4 mg IV Q4H PRN PRN Reason: Nausea/Vomiting Pantoprazole Sodium (Protonix) 40 mg PO ACBREAKFAST [facility] [place] Last Admin: 07/20/20 10:37 Dose: 40 mg Documented by: Simvastatin (Zocor) 20 mg PO DAILY [facility] [place] Last Admin: 07/20/20 10:37 Dose: 20 mg Documented by: Tamsulosin HCl (Flomax) 0.4 mg PO BEDTIME [facility] [place] Tiotropium [place] (Spiriva Respimat) 0 gm .XX DAILY [facility] [place] Last Admin: 07/20/20 10:40 Dose: Not Given Documented by: Discontinued Medications Diltiazem HCl (Diltiazem) 10 mg IVPUSH ONETIME ONE Stop: 07/19/20 23:33 Levetiracetam 250 mg/ Sodium (Chloride) 102.5 mls @ 400 mls/hr IV ONETIME ONE Stop: 07/19/20 22:17 Last Admin: 07/19/20 22:59 Dose: 400 mls/hr Documented by: Sodium Chloride (Normal Saline) Confirm Administered Dose 100 mls @ as directed .ROUTE .STK-MED ONE Stop: 07/19/20 23:02 Last Admin: 07/19/20 23:08 Dose: Not Given Documented by: Diltiazem HCl 100 mg/ Sodium (Chloride) 100 mls @ 5 mls/hr IV TITRATE [facility] [place]; Protocol Last Admin: 07/20/20 01:37 Dose: 5 mg/hr, 5 mls/hr Documented by: Sodium Chloride (Normal Saline) 1,000 mls @ 500 mls/hr IV ASDIRECTED [facility] [place] Last Admin: 07/20/20 00:01 Dose: 500 mls/hr Documented by: Sodium Chloride (Normal Saline) 1,000 mls @ 125 mls/hr IV ASDIRECTED [facility] [place] Last Admin: 07/20/20 03:59 Dose: 125 mls/hr Documented by: Ondansetron HCl (Zofran) 4 mg IVPUSH ONETIME ONE Stop: 07/19/20 23:51 Last Admin: 07/20/20 00:02 Dose: 4 mg Documented by: - Exam Quality Assessment: DVT Prophylaxis General: Alert, Cooperative, No Acute Distress. No: Oriented Lungs: Clear to Auscultation, Normal Respiratory Effort, Decreased Breath Sounds Cardiovascular: Regular Rate, No Murmurs, Irregular Rhythm GI/Abdominal Exam: Soft, Non-Tender, No Organomegaly, No Distention Extremities: Non-Tender, No Pedal Edema Sepsis Event Note - Evaluation Sepsis Screening Result: No Definite Risk - Focused Exam Vital Signs: Vital Signs Temp Pulse Pulse Resp BP BP Pulse Ox 07/20/20 10:38 85 123/62 07/20/20 10:37 123/62 07/20/20 10:00 21 H 123/62 98 07/20/20 09:00 19 99/72 07/20/20 08:00 19 99/65 97 07/20/20 07:00 20 100/60 07/20/20 06:00 18 103/59 L 07/20/20 05:00 19 106/58 L 07/20/20 04:00 19 104/59 L 98 07/20/20 03:00 19 107/51 L 99 07/20/20 02:00 18 126/77 94 L 07/20/20 01:30 97.1 F 19 119/72 97 07/20/20 00:32 132 H 21 H 116/75 07/20/20 00:12 130 H 111/68 07/19/20 23:53 92 25 H 102/68 92 L 07/19/20 23:39 140 H 22 H 91/50 L 91 L - Problem List Review Problem List Initiated/Reviewed/Updated: Yes - My Orders Last 24 Hours: My Active Orders 07/20/20 10:38 Convert IV to Saline Lock [OM.PC] Routine 07/20/20 10:45 Diltiazem IR [Cardizem] 30 mg PO Q6HR 07/21/20 05:00 BASIC METABOLIC PANEL,BMP [CHEM] Timed CBC WITH AUTO DIFF [HEME] Timed - Plan Plan:: ASSESSMENT AND PLAN ATRIAL FIBRILLATION WITH RAPID VENTRICULAR RESPONSE-duration unknown. Calculated [id number] score of 5. Rate well controlled with IV diltiazem continuous infusion. -Initiate anticoagulation if he does not spontaneously convert over the next 24 hours -Discontinue IV diltiazem -Diltiazem 30 mg p.o. every 6 hours, transition to long-acting form tomorrow if tolerated SEIZURE DISORDER-3 seizures [facility]. Usually increase in seizures triggered by underlying infection or other abnormality, these may be secondary to the atrial fibrillation. Other than elevation in white blood cell count no other evidence of active infection present at this time -Continue current therapy with Keppra -Keppra level is pending -Urinalysis MAINTENANCE ISSUES -DVT prophylaxis; Lovenox 40 mg subcu daily -GI prophylaxis; not indicated -Freed catheter; not indicated -Nutrition; regular diet -Nicotine dependence; not required CODE STATUS-DNR/DNI ADMISSION STATUS-patient will be admitted to inpatient status, expect at least a 2 night hospital stay for evaluation and management of problems as outlined above. At the time of this admission I do not reasonably expected evaluation and management of this problem will require more than a 96 hour hospital stay. DISPOSITION-anticipate discharge to home after the hospital stay. PRIMARY CARE PROVIDER-Dr. Curiel
[2020-07-20] MEDS: Enoxaparin 30 MG/0.3 ML Syringe SUBCUT SCH ×2 (12:47→12:50)
[2020-07-20] MEDS: Diltiazem IR 30 MG Tab PO SCH ×3 (12:48→21:59)
[2020-07-20] MEDS ORDERED: Loratadine 10 MG Tab PO SCH (21:00)
[2020-07-20] MEDS ORDERED: Mirtazapine 15 MG Tab PO SCH (21:00)
[2020-07-20] MEDS ORDERED: Tamsulosin 0.4 MG Cap.ER PO SCH (21:00)
[2020-07-20] MEDS ORDERED: levETIRAcetam 250 MG Tab PO SCH (21:00)
[2020-07-21] MEDS: Diltiazem IR 30 MG Tab PO SCH (04:27)
[2020-07-21] MEDS: Metoprolol Tartrate 25 MG Tab PO SCH (08:54)
[2020-07-21] MEDS: DULoxetine 20 MG Cap PO SCH (08:55)
[2020-07-21] MEDS: Pantoprazole 40 MG Tab.CR PO SCH (08:55)
[2020-07-21] MEDS: levETIRAcetam 250 MG Tab PO SCH (08:55)
[2020-07-21] MEDS: Simvastatin 20 MG Tab PO SCH (08:55)
[2020-07-21] MEDS ORDERED: Diltiazem 120 MG Cap.CD PO SCH (09:00)
[2020-07-21] MEDS: LACTAID PO SCH (09:08)
[2020-07-21] MEDS: Lisinopril 10 MG Tab PO SCH (09:08)
[2020-07-21] MEDS: Fluticasone Propionate Nasal Spray 16 GM Bottle NASBOTH SCH (09:08)
[2020-07-21] MEDS: Fish Oil/Omega-3 Fatty Acids 1 Gm Cap PO SCH (09:08)
[2020-07-21] MEDS: Enoxaparin 30 MG/0.3 ML Syringe SUBCUT SCH (09:08)
[2020-07-21] MEDS: Tiotropium Bromide 4 GM Inhalation Spray (2.5mcg/1 dose; 10 doses) SCH (09:09)
[2020-07-21] MEDS: Acetaminophen 500 MG Tab PO SCH (09:09)
--- NOTE | 2020-07-21 13:29 | PCM.DCSUM1 ---
Discharge Summary - Hospital Course Brief History: Mr. Dawn is a 79-year-old gentleman who was admitted through the emergency department to observation status with seizures and atrial fibrillation with rapid ventricular response. - Discharge Data Discharge Date: 07/21/20 Discharge Disposition: Home, Self-Care 01 Condition: Fair - Referral to Home Health Primary Care Physician: PCP None - Discharge Diagnosis/Problem(s) (1) Atrial fibrillation with RVR SNOMED Code(s): 380648829726762 ICD Code: I48.91 - UNSPECIFIED ATRIAL FIBRILLATION Status: Acute Current Visit: Yes (2) Nausea & vomiting SNOMED Code(s): 86261073 ICD Code: R11.2 - NAUSEA WITH VOMITING, UNSPECIFIED Status: Acute Current Visit: Yes Qualifiers: Vomiting type: unspecified Vomiting Intractability: non-intractable Qualified Code(s): R11.2 - Nausea with vomiting, unspecified (3) Seizure disorder SNOMED Code(s): 557020536 ICD Code: G40.909 - EPILEPSY, UNSP, NOT INTRACTABLE, WITHOUT STATUS EPILEPTICUS Status: Acute Current Visit: Yes (4) Dehydration SNOMED Code(s): 70634285 ICD Code: E86.0 - DEHYDRATION Status: Acute Current Visit: No (5) CKD (chronic kidney disease) SNOMED Code(s): 971955149 ICD Code: N18.9 - CHRONIC KIDNEY DISEASE, UNSPECIFIED Status: Chronic Current Visit: No (6) Late onset Alzheimer disease SNOMED Code(s): 85222983 ICD Code: G30.1 - ALZHEIMER'S DISEASE WITH LATE ONSET; F02.80 - DEMENTIA IN OTH DISEASES CLASSD ELSWHR W/O BEHAVRL DISTURB Status: Chronic Current Visit: No (7) Type 2 diabetes mellitus SNOMED Code(s): 35883485 ICD Code: E11.9 - TYPE 2 DIABETES MELLITUS WITHOUT COMPLICATIONS Status: Chronic Current Visit: No - Patient Summary/Data Hospital Course: Mr. Dawn is a 79-year-old gentleman who was admitted through the emergency department with recurrent seizures and new onset of atrial fibrillation with rapid ventricular response. Mr. Farris does have difficulty with dementia and confusion and was unable to provide a meaningful history concerning symptoms or review of systems. He was witnessed to have 3 seizures yesterday by nursing staff and brought into the emergency department for further evaluation. White blood cell count was elevated but there was no other evidence of underlying infection. He was found to have a rapid heart rate with underlying atrial fibrillation, duration unknown. While in the emergency department he was started on a continuous infusion of diltiazem for rate control with the atrial fibrillation. Because of seizures he was started on increased dose of Keppra 250 mg daily in the morning and to continue 500 mg in the evening. He remained in atrial fibrillation throughout his hospital stay. Rate control improved significantly with IV diltiazem and he was transitioned to long-acting oral diltiazem at 120 mg daily. He tolerated this well with good rate control prior to discharge. A [id number] score was calculated at 5. For this reason he was started on oral anticoagulation with Eliquis 5 mg p.o. twice daily. He had no further seizure activity noted during hospitalization. Activity will be as tolerated and he will resume his usual diet. Follow-up with [facility] at [facility] as [facility]. - Patient Instructions Diet: Usual Diet as Tolerated Activity: As Tolerated - Discharge Plan *PRESCRIPTION DRUG MONITORING PROGRAM REVIEWED*: Not Applicable *COPY OF PRESCRIPTION DRUG MONITORING REPORT IN PATIENT NEAL: Not Applicable Prescriptions/Med Rec: Diltiazem [Cardizem CD] 120 mg PO DAILY #30 cap.cd Apixaban [Eliquis] 5 mg PO BID #60 tablet levETIRAcetam [Keppra] 250 mg PO DAILY #30 tablet Home Medications: Home Meds Fluticasone Propionate [Flonase] 2 spray NS DAILY 04/30/20 [History] Loratadine 10 mg PO BEDTIME 04/30/20 [History] [place]-3 Fatty Acids/Fish Oil [Fish Oil 1,000 mg Capsule] 1 cap PO DAILY 04/30/20 [History] Simvastatin [Zocor] 20 mg PO DAILY 04/30/20 [History] Tamsulosin HCl [Flomax] 1 cap PO BEDTIME 04/30/20 [History] Tiotropium [place] [Spiriva Respimat] 2 puff IH DAILY 04/30/20 [History] levETIRAcetam [Keppra] 250 mg PO DAILY 04/30/20 [History] lisinopriL [Lisinopril] 10 mg PO DAILY 04/30/20 [History] Pantoprazole [ProTONIX] 40 mg PO DAILY #30 tab.cr 05/02/20 [Rx] Metoprolol Tartrate 12.5 mg PO BID 06/13/20 [History] Acetaminophen [Pain Relief Extra Strength] 1,000 mg PO BID 07/19/20 [History] DULoxetine HCl [Duloxetine HCl] 40 mg PO DAILY 07/19/20 [History] Lactase [Lactaid] 3,000 unit PO DAILY 07/19/20 [History] Mesalamine 2 tab PO TID 07/19/20 [History] Mirtazapine [Remeron] 15 mg PO BEDTIME 07/19/20 [History] levETIRAcetam [Keppra] 500 mg PO BEDTIME 07/19/20 [History] Apixaban [Eliquis] 5 mg PO BID #60 tablet 07/21/20 [Rx] Diltiazem [Cardizem CD] 120 mg PO DAILY #30 cap.cd 07/21/20 [Rx] levETIRAcetam [Keppra] 250 mg PO DAILY #30 tablet 07/21/20 [Rx] Referrals: Agustín Curiel MD [Physician] - - Discharge Summary/Plan Comment DC Time >30 min.: No - Patient Data Vitals - Most Recent: Last Vital Signs Temp 97.7 F 07/21/20 07:00 Pulse 88 07/21/20 08:54 Resp 18 07/21/20 13:00 BP 139/100 H 07/21/20 13:00 Pulse Ox 95 07/21/20 13:00 Weight - Most Recent: 141 lb I&O - Last 24 hours: Intake & Output 07/20/20 07/21/20 07/21/20 22:59 06:59 14:59 Intake Total 999 Balance 999 Lab Results - Last 24 hrs: Laboratory Results - last 24 hr 07/21/20 07/21/20 Range/Units 06:33 06:33 WBC 12.4 H (4.5-11.0) K/uL RBC 3.68 L (4.30-5.90) M/uL Hgb 11.8 L (12.0-15.0) g/dL Hct 37.0 L (40.0-54.0) % MCV 101 H (80-98) fL MCH 32 H (27-31) pg MCHC 32 (32-36) % Plt Count 350 (150-400) K/uL Neut % (Auto) 78 H (36-66) % Lymph % (Auto) 13 L (24-44) % [place] % (Auto) 8 H (2-6) % Eos % (Auto) 1 L (2-4) % Baso % (Auto) 0 (0-1) % Sodium 145 (140-148) mmol/L Potassium 3.7 (3.6-5.2) mmol/L Chloride 110 H (100-108) mmol/L Carbon Dioxide 23 (21-32) mmol/L Anion Gap 15.7 H (5.0-14.0) mmol/L BUN 27 H (7-18) mg/dL Creatinine 1.7 H (0.8-1.3) mg/dL Est Cr Clr Drug Dosing 32.92 mL/min Estimated GFR (MDRD) 39 L (>60) Glucose 137 H (74-106) mg/dL Calcium 8.8 (8.5-10.1) mg/dL MALISSA Results - Last 24 hrs: Microbiology 07/20/20 11:41 Stool Culture - Preliminary Stool / Feces NORMAL ENTERIC PEDRO PABLO 1 DAY Shiga Toxin I - Final NEGATIVE FOR SHIGA TOXIN 1 Shiga Toxin II - Final NEGATIVE FOR SHIGA TOXIN 2 REFERENCE RANGE: NEGATIVE Clostridioides difficile (PCR) - Final 07/20/20 11:41 Stool for WBCs - Final Stool / Feces Med Orders - Current: Current Medications Acetaminophen (Tylenol) 650 mg PO Q4H PRN PRN Reason: Pain (Mild 1-3)/fever Acetaminophen (Tylenol Extra Strength) 1,000 mg PO BID [facility] Last Admin: 07/21/20 09:09 Dose: Not Given Documented by: Apixaban (Eliquis) 5 mg PO BID [facility] Diltiazem HCl (Cardizem Cd) 120 mg PO DAILY [facility] Last Admin: 07/21/20 08:54 Dose: 120 mg Documented by: Duloxetine HCl (Cymbalta) 40 mg PO DAILY [facility] Last Admin: 07/21/20 08:55 Dose: 40 mg Documented by: Enoxaparin Sodium (Lovenox) 30 mg SUBCUT DAILY [facility] Last Admin: 07/21/20 09:08 Dose: Not Given Documented by: Fish Oil (Fish Oil) 1 gm PO DAILY [facility] Last Admin: 07/21/20 09:08 Dose: Not Given Documented by: Fluticasone Propionate (Flonase) 0 gm NASBOTH DAILY [facility] Last Admin: 07/21/20 09:08 Dose: Not Given Documented by: Levetiracetam (Keppra) 250 mg PO DAILY [facility] Last Admin: 07/21/20 08:55 Dose: 250 mg Documented by: Levetiracetam (Keppra) 500 mg PO BEDTIME [facility] Last Admin: 07/20/20 21:45 Dose: 500 mg Documented by: Lisinopril (Prinivil) 10 mg PO DAILY [facility] Last Admin: 07/21/20 09:08 Dose: Not Given Documented by: Loratadine (Claritin) 10 mg PO BEDTIME [facility] Last Admin: 07/20/20 21:51 Dose: Not Given Documented by: Metoprolol Tartrate (Lopressor) 12.5 mg PO BID [facility] Last Admin: 07/21/20 08:54 Dose: 12.5 mg Documented by: Mirtazapine (Remeron) 15 mg PO BEDTIME [facility] Last Admin: 07/20/20 21:47 Dose: 15 mg Documented by: Lactaid 3,000 Unit * (*Ptom) 3,000 unit PO DAILY [facility] Last Admin: 07/21/20 09:08 Dose: Not Given Documented by: Non-Formulary Medication (Mesalamine [Mesalamine]) 2 tab PO TID [facility] Ondansetron HCl (Zofran) 4 mg IV Q4H PRN PRN Reason: Nausea/Vomiting Last Admin: 07/20/20 11:18 Dose: 4 mg Documented by: Pantoprazole Sodium (Protonix) 40 mg PO ACBREAKFAST [facility] Last Admin: 07/21/20 08:55 Dose: 40 mg Documented by: Simvastatin (Zocor) 20 mg PO DAILY [facility] Last Admin: 07/21/20 08:55 Dose: 20 mg Documented by: Tamsulosin HCl (Flomax) 0.4 mg PO BEDTIME [facility] Last Admin: 07/20/20 21:51 Dose: Not Given Documented by: Tiotropium [place] (Spiriva Respimat) 0 gm .XX DAILY [facility] Last Admin: 07/21/20 09:09 Dose: Not Given Documented by: Discontinued Medications Diltiazem HCl (Diltiazem) 10 mg IVPUSH ONETIME ONE Stop: 07/19/20 23:33 Diltiazem HCl (Cardizem) 30 mg PO Q6H [facility] Last Admin: 07/21/20 04:27 Dose: 30 mg Documented by: Levetiracetam 250 mg/ Sodium (Chloride) 102.5 mls @ 400 mls/hr IV ONETIME ONE Stop: 07/19/20 22:17 Last Admin: 07/19/20 22:59 Dose: 400 mls/hr Documented by: Sodium Chloride (Normal Saline) Confirm Administered Dose 100 mls @ as directed .ROUTE .STK-MED ONE Stop: 07/19/20 23:02 Last Admin: 07/19/20 23:08 Dose: Not Given Documented by: Diltiazem HCl 100 mg/ Sodium (Chloride) 100 mls @ 5 mls/hr IV TITRATE [facility]; Protocol Last Admin: 07/20/20 01:37 Dose: 5 mg/hr, 5 mls/hr Documented by: Sodium Chloride (Normal Saline) 1,000 mls @ 500 mls/hr IV ASDIRECTED [facility] Last Admin: 07/20/20 00:01 Dose: 500 mls/hr Documented by: Sodium Chloride (Normal Saline) 1,000 mls @ 125 mls/hr IV ASDIRECTED [facility] Last Admin: 07/20/20 03:59 Dose: 125 mls/hr Documented by: Ondansetron HCl (Zofran) 4 mg IVPUSH ONETIME ONE Stop: 07/19/20 23:51 Last Admin: 07/20/20 00:02 Dose: 4 mg Documented by: - Exam Quality Assessment: Reports: DVT Prophylaxis General: Reports: Alert, No Acute Distress. Denies: Oriented, Cooperative Lungs: Reports: Clear to Auscultation, Normal Respiratory Effort Cardiovascular: Reports: Regular Rate, No Murmurs, Irregular Rhythm GI/Abdominal Exam: Soft, Non-Tender, No Organomegaly, No Distention Extremities: Non-Tender, No Pedal Edema
[2020-07-21] MEDS ORDERED: Apixaban 5 MG Tab PO SCH (21:00)
== END 2020-07-21 16:49 | disposition home or self-care (01) ==
LOC: JP.ED 21:48 → JP.ICU 07-20 00:20
PROVIDERS: ADMIT Family Medicine; ATTEND Hospitalist
DX: R56.9 Unspecified convulsions (principal); I48.91 Unspecified atrial fibrillation; E11.42 Type 2 diabetes mellitus with diabetic polyneuropathy; K21.9 Gastro-esophageal reflux disease without esophagitis; E78.5 Hyperlipidemia, unspecified; I25.10 Atherosclerotic heart disease of native coronary artery without angina pectoris; J44.9 Chronic obstructive pulmonary disease, unspecified; E86.0 Dehydration; Z20.822 Contact with and (suspected) exposure to COVID-19; E11.22 Type 2 diabetes mellitus with diabetic chronic kidney disease; I12.9 Hypertensive chronic kidney disease with stage 1 through stage 4 chronic kidney disease, or unspecified chronic kidney disease; N18.9 Chronic kidney disease, unspecified; G30.1 Alzheimer's disease with late onset; F02.80 Dementia in other diseases classified elsewhere, unspecified severity, without behavioral disturbance, psychotic disturbance, mood disturbance, and anxiety; Z79.899 Other long term (current) drug therapy; Z91.030 Bee allergy status; Z88.8 Allergy status to other drugs, medicaments and biological substances
CPT/HCPCS: 36415; 80048; 80053; 80177; 81001; 85025; 85027; 87046; 87493; 87899; 89055; 96365; 96366; 96375; 96376; 99284; A9270; G0378; J1953; J2405; J3490; J7030; J7050; U0002; 96374; 99217; 99225; J1650